=== PATIENT | male | born 1950 | race Caucasian/White ===

== ENCOUNTER 2021-11-28 13:26 | Outpatient (CLI) | payer MEDICARE, OTHER, SELFPAY ==
[2021-11-28 09:31] LABS: Chloride* 103 mmol/L (96-114)
[2021-11-28 09:32] LABS: Albumin* 4.7 g/dL (3.3-5.0); Potassium* 4.5 mmol/L (3.6-5.1); Sodium* 137 mmol/L (135-149)
[2021-11-28 09:34] LABS: Cholesterol* 177 mg/dL (90-199)
[2021-11-28 09:35] LABS: Alanine Aminotransferase* 23 U/L (4-50); Alkaline Phosphatase* 76 U/L (40-150); Aspartate Amino Transferase* 28 U/L (12-35); Bilirubin Total* 0.8 mg/dL (0.1-1.5); Blood Urea Nitrogen* 14 mg/dL (7-30); Calcium* 9.9 mg/dL (8.4-10.6); Carbon Dioxide* 27 mmol/L (20-32); Creatinine* 1.3 mg/dL (0.5-1.5); Estimated Glomerular Filt Rate 59 ml/min; Glucose* 100 mg/dL (60-115); Total Protein* 7.3 g/dL (6.0-8.3); Triglycerides* 158 mg/dL (40-149)
[2021-11-28 09:36] LABS: HDL Cholesterol* 62 mg/dL (>=40); LDL Cholesterol Calculated 83 mg/dL (<100)
[2021-11-28 10:03] LABS: PSA Screen* 5.64 ng/mL (0.10-4.00)
== END 2021-11-28 13:27 | disposition home or self-care (01) ==
PROVIDERS: PCP Family Medicine; Visit Provider Family Medicine
DX: E78.5 Hyperlipidemia, unspecified (principal); N40.0 Benign prostatic hyperplasia without lower urinary tract symptoms; R97.20 Elevated prostate specific antigen [PSA]; N28.9 Disorder of kidney and ureter, unspecified
CPT/HCPCS: 80053; 80061; 84153

== ENCOUNTER 2022-10-01 09:20 | Outpatient (CLI) | payer MEDICARE, OTHER, SELFPAY | END 2022-10-01 09:21 | disposition home or self-care (01) | LOC: AMB 10-05 09:39 | PROVIDERS: PCP Family Medicine; Visit Provider Family Medicine | DX: R25.2 Cramp and spasm (principal); R42 Dizziness and giddiness | CPT/HCPCS: A0425; A0427 ==

== ENCOUNTER 2022-10-01 09:43 | Emergency (ER) | payer MEDICARE, OTHER, SELFPAY ==
[2022-10-01] VITALS (10 sets, daily range): BP systolic 91–140; BP diastolic 48–81; PULSE 46–72; RESP 10–33; TEMP 36; O2SAT 92–98; BMI 31.4
--- NOTE | 2022-10-01 10:17 | ED_ITS ---
HPI - General Adult General Time Seen by Provider: 10:17 Date Seen: 10/01/22 Chief complaint: Dizziness/Vertigo Stated complaint: cramps / jaw pain Time Seen by Provider: 10/01/22 10:17 Source: patient Mode of arrival: EMS Limitations: no limitations History of Present Illness HPI narrative: Barrett is a very pleasant 72-year-old gentleman with a history of hyperlipidemia, renal insufficiency otherwise quite active who comes to the emergency room via EMS after having lightheadedness earlier today. Barrett rides his bike frequently and his usual route is 19 miles. He was approximately 4 miles into his route today when he had the sudden experience of jaw pain and clenching associated with low back and leg pain. He stopped biking and was trying to rest when he also became lightheaded. He does not really describe any vertigo type symptoms. He thinks that he is dehydrated and thought this prior to starting his ride today. He notes that he started drinking his water earlier than normal. Because he was not feeling any better he went to lay on the ground. Passerbys stopped to help him as he was not feeling any better. Thus they called 911. He notes that his blood pressure was quite low with the ambulance. He notes that usually his blood pressure is 140 systolic. He denies chest pain, shortness of breath, abdominal pain or nausea. He denies a headache, history of cardiac disease. He notes that the low back pain with radiation into his legs is improved. His jaw brain is much improved but still present. Again he attributes all of this to dehydration. Related Data Home Medications Medication Instructions Recorded Confirmed calcium carbonate 600 mg-vitamin 2 tab PO DAILY 12/01/21 10/01/22 D3 20 mcg (800 unit) tablet Previous Rx's Medication Instructions Recorded simvastatin 20 mg tablet 20 mg PO QHS #90 tabs 12/01/21 Allergies Allergy/AdvReac Type Severity Reaction Status Date / Time amoxicillin Allergy Severe Rash Verified 10/01/22 12:45 Sulfa (Sulfonamide Allergy Severe Swelling Verified 10/01/22 12:45 Antibiotics) of Lip/Tongue/Throat Dust mites Allergy Intermediate Congested Uncoded 10/01/22 12:45 Review of Systems Status of ROS: Reports: 10 or more systems reviewed and unremarkable except as noted in History and below Const: Denies: fever or chills ENMT: Denies: throat pain, throat swelling or difficulty swallowing Cardio: Denies: chest pain, swelling of feet/ankles, lightheadedness or shortness of breath with exertion Resp: Denies: shortness of breath or cough GI: Denies: abdominal pain, nausea, vomiting or difficulty swallowing : Denies: painful urination Musculo: Reports: back pain (Low back pain now improving) Neuro: Denies: headache Allergy/Immuno: Denies: throat swelling PFSH PFSH Medical History History of renal calculi (2009) ?Z87.442 - Personal history of urinary calculi (ICD-10) History of headache ?Z87.898 - Personal history of other specified conditions (ICD-10) History of colonic polyps (12/23/08) ?Z86.010 - Personal history of colonic polyps (ICD-10) Health care directive on file (05/15/14) ?Z78.9 - Other specified health status (ICD-10) Surgical History History of tonsillectomy ?Z90.89 - Acquired absence of other organs (ICD-10) History of knee surgery (1976) ?Z98.890 - Other specified postprocedural states (ICD-10) History of hernia repair (03/27/14) ?Z98.890 - Other specified postprocedural states (ICD-10) ?Z87.19 - Personal history of other diseases of the digestive system (ICD-10) History of colonoscopy (02/14/19) ?Z98.890 - Other specified postprocedural states (ICD-10) Social History Smoking Status: Never smoker Do you use any of these nicotine containing products: None Second hand tobacco smoke exposure: No How often do you have a drink containing alcohol: never AUDIT-C Alcohol total score: 0 Non-prescribed substance use: denies use Little interest or pleasure in doing things: not at all Feeling down, depressed, or hopeless: not at all Exam Narrative: Exam Narrative: Patient is alert and oriented. He is not in any acute distress. Neck is supple. Range of motion full. EOM is full pupils are equal round and reactive. Head is atraumatic normocephalic. GCS of 15. Heart with bradycardic rate and rhythm without murmur. Lungs are clear to auscultation. Abdomen soft nontender. No pulsating mass. Lower extremities without edema. Pedal pulses are symmetrical and intact. Neurological exam shows him to be with a GCS of 15 alert and oriented. Upper extremity motor and sensation intact. Lower extremity motor and sensation intact. No calf tenderness. Const: Vital Signs, click to edit/add: Vital Signs - 24 hr 10/01/22 09:57 10/01/22 10:00 10/01/22 10:30 Temperature 96.8 F L Pulse Rate [Pulse Oximeter] 50 L 57 L 70 Respiratory Rate 16 15 22 Blood Pressure [Ri ght Upper Arm] 99/56 L 97/57 L 91/48 L Pulse Oximetry 95 92 96 Oxygen Delivery Me thod Room Air Room Air Room Air 10/01/22 11:00 10/01/22 11:30 10/01/22 12:00 Temperature Pulse Rate [Pulse Oximeter] 51 L 46 L 49 L Respiratory Rate 12 17 10 L Blood Pressure [Ri ght Upper Arm] 95/58 L 110/63 111/59 L Pulse Oximetry 96 96 96 Oxygen Delivery Me thod Room Air Room Air Room Air 10/01/22 12:30 10/01/22 13:00 10/01/22 13:30 Temperature Pulse Rate [Pulse Oximeter] 64 64 72 Respiratory Rate 20 12 33 H Blood Pressure [Ri ght Upper Arm] 128/65 136/77 140/81 H Pulse Oximetry 97 98 98 Oxygen Delivery In thod Room Air Room Air Room Air 10/01/22 13:50 Temperature Pulse Rate [Pulse Oximeter] 58 L Respiratory Rate 12 Blood Pressure [Ri ght Upper Arm] 138/78 Pulse Oximetry 98 Oxygen Delivery In thod Room Air Documenting provider has reviewed patient's vital signs: yes Course Course Hospital Course: Patient noted to have had the a sudden onset of jaw pain low back and leg pain. He notes that yesterday he was out in the sun for extended period and feels that today when he started his bike ride he that he was dehydrated. He notes he is already feeling better since his arrival. However, given the jaw and back pain, I feel this necessitates checking other labs. This would include a D-dimer, troponin, EKG comprehensive panel, CRP and CBC. No evidence of neurological event on exam. He is describing lightheadedness not vertigo. Differential diagnosis is broad and includes dehydration, electrolyte imbalance, acute coronary event, PE, aortic dissection, urinary tract infection. Reevaluation(s) Reevaluation #1: Patient noted to have markedly elevated D-dimer. After 1 L of normal saline patient notes that his jaw low back and leg pain is resolved. However, I do think he needs to go through CT scan to rule out large PE verses aortic pathology. He is in agreement with this. He is requesting something to eat and drink. Will allow him a few ice chips at this time. Reevaluation #2: CT worrisome for aortic dissection. Will keep patient NPO. Blood pressure has improved to 120 systolic and therefore will discontinue 2 L of fluid. I have contacted [facility] but now family would like to go to [facility]. [facility] was contacted and they are on divert and with that news they are happy to go to [facility]. Patient tearful as is his . I have offered small dose of Ativan and they are accepting of that. Patient remains bradycardic. No shortness of breath. No abdominal pain. Consultations Consultation #1: At the pleasure of speaking with , tube cutter to has alerted the cardiovascular surgeons. Have push the films to [place]. Will attempt to fly patient and if that is a long wait will go by ground. Vital Signs Vital signs: Initial Vital Signs Temperature 96.8 F L 10/01/22 09:57 Temperature Source Temporal Artery Scan 10/01/22 09:57 Pulse Rate 50 L 10/01/22 09:57 Pulse Rhythm Regular 10/01/22 09:57 Respiratory Rate 16 10/01/22 09:57 Blood Pressure 99/56 L 10/01/22 09:57 Blood Pressure Mean 70 10/01/22 09:57 Blood Pressure Position Sitting 10/01/22 09:57 Pulse Oximetry 95 10/01/22 09:57 Oxygen Delivery Method Room Air 10/01/22 09:57 Vital Signs Temperature 96.8 F L 10/01/22 09:57 Pulse Rate 50 L 10/01/22 09:57 Respiratory Rate 16 10/01/22 09:57 Blood Pressure 99/56 L 10/01/22 09:57 Pulse Oximetry 95 10/01/22 09:57 Oxygen Delivery Method Room Air 10/01/22 09:57 Temperature 96.8 F L 10/01/22 09:57 Pulse Rate 58 L 10/01/22 13:50 Respiratory Rate 12 10/01/22 13:50 Blood Pressure 138/78 10/01/22 13:50 Pulse Oximetry 98 10/01/22 13:50 Oxygen Delivery Method Room Air 10/01/22 13:50 Medical Decision Making MDM Narrative Medical decision making narrative: 1. Aortic dissection-currently awaiting radiological over-read. Patient's blood pressure has improved after 1 L of normal saline. Therefore I have discontinued the 2 L as I do not want a situation with volume overload. He is oxygenating well, has a bradycardic pulse and is not experiencing any pain at this time. 2. Hypotension-improved after 1 L normal saline. 3. Disposition-currently awaiting error transport to [facility]. There has been discussion regarding availability of air transport and we have finally received word that they will be here in 30 minutes. Ground EMS could be here in 15 minutes. I feel that patient would be safer in the air at this time and I do not what him in the back of an ambulance hitting pot holes, etc. Patient will be taken to the [facility] ED. Dr. Whitehead accepting physician. 1351 hours: I received a phone call from Radiology who confirms extensive aortic dissection. [facility] depart via [facility] going directly to the ED at [facility]. Medical Records Medical records reviewed: Yes I reviewed the patient's medical records Lab Data Lab results reviewed: Yes I reviewed the patient's lab results Labs: Lab Results 10/01/22 10/01/22 Range/Units 10:20 13:35 WBC 4.89 (4.50-11.00) K/uL RBC 4.39 (4.30-5.90) m/uL Hgb 13.5 (13.5-17.5) gm/dL Hct 41.4 (37.0-53.0) % MCV 94 (80-100) fL MCH 31 (26-34) pg MCHC 33 (32-36) gm/dL RDW Coeff of Devi 13.2 (11.5-15.5) % Plt Count 165 (140-440) K/uL Neut % (Auto) 69.9 (42.0-72.0) % Lymph % (Auto) 17.0 L (20-44) % Bay % (Auto) 9.2 (0.0-11.0) % Eos % (Auto) 3.1 (0.0-7.0) % Baso % (Auto) 0.6 (0.0-3.0) % Neut # (Auto) 3.42 (1.7-7.0) K/uL Lymph # (Auto) 0.80 L (0.90-2.90) K/uL Bay # (Auto) 0.40 (0.00-0.90) K/UL Eos # (Auto) 0.15 (0.00-0.50) K/uL Baso # (Auto) 0.03 (0.00-0.30) K/uL Abs Immat Gran (auto) 0.01 (0.00-0.30) K/uL Imm/Tot Granulo (auto) 0.2 % D-Dimer Quant (PE/DVT) > 20.00 H (0.00-0.50) ug/ml Sodium 137 (135-149) mmol/L Potassium 4.2 (3.6-5.1) mmol/L Chloride 108 (96-114) mmol/L Carbon Dioxide 23 (20-32) mmol/L BUN 18 (7-30) mg/dL Creatinine 1.5 (0.5-1.5) mg/dL Estimated Creat Clear 48.11 Estimated GFR 49 ml/min Glucose 99 (60-115) mg/dL Total Bilirubin 0.8 (0.1-1.5) mg/dL AST 31 (12-35) U/L ALT 27 (4-50) U/L Alkaline Phosphatase 54 (40-150) U/L C-Reactive Protein < 0.5 L (0.5-1.0) mg/dL Total Protein 6.6 (6.0-8.3) g/dL Albumin 3.9 (3.3-5.0) g/dL Urine Color Dark yellow (Yellow) Urine Appearance Clear (Clear) Urine pH 7.5 (5.0-8.5) Ur Specific [place] 1.010 (1.000-1.030) Urine Protein 2+ A (Negative) Urine Glucose (UA) Negative (Negative) Urine Ketones Negative (Negative) Urine Blood Negative (Negative) Urine Nitrite Negative (Negative) Urine Bilirubin Negative (Negative) Urine Urobilinogen 0.2 (0.2-1.0) Ur Leukocyte Esterase Negative (Negative) Urine RBC 0-2 (0-2) Urine WBC 0-2 (0-5) Ur Squamous Epith Cells Few (None-Few) Urine Bacteria Few A (None) POC Troponin I 0.01 (0.01-0.04) ng/ml Imaging Data CT Chest/Ab/Pelvis: Attestation: I have reviewed the pertinent imaging results. My impression: Patient is very worrisome for aortic dissection. Radiologist's impression: Extensive aortic dissection ascending aorta, descending aorta thoracic aorta to the iliac. ECG Data Attestation: I personally reviewed and interpreted this ECG as follows: Interpretation: EKG by my read shows sinus rhythm at a rate of 62. Patient noted to have T-wave inversion mild in 3 AVF and V6. Does not appear acute. No ST segment changes. Critical Care Time Critical Care Time Critical Care Time: Yes Attestation: The patient required my highest level preparedness to intervene emergently and I personally spent this critical care time directly and personally managing the patient. This critical care time included: Obtaining a history; Examining the patient; Pulse oximetry; Ordering and reviewing of studies; Arranging urgent treatment with development of a management plan; Evaluation of patients response to treatment; Frequent reassessment discussions with other providers. This critical care time was performed to assess and manage the high probability of imminent life-threatening deterioration that could result in multiorgan failure. It was exclusive of separate billable procedures and treating other patients and teaching time. Total Critical Care Time in Minutes: 45 Discharge Plan Discharge Clinical Impression: Aortic dissection Qualifiers: Aortic location: thoracoabdominal aorta Qualified Code(s): I71.03 - Dissection of thoracoabdominal aorta Patient Disposition: Xfer [facility] Discharge Location: [facility] Condition: Critical Prescriptions: No Action calcium carbonate-vitamin D3 600 mg-20 mcg (800 unit) tablet 2 tab PO DAILY simvastatin 20 mg tablet 20 mg PO QHS Qty: 90 3RF Stand Alone Forms: MyHealth Info Instructions
[2022-10-01 10:42] LABS: Troponin, Point-of-Care* 0.01 ng/ml (0.01-0.04)
[2022-10-01] MEDS: 0.9 % SODIUM CHLORIDE 1000 ml 1,000 ML IV ×2 (10:46→13:36)
[2022-10-01 10:52] LABS: Basophils Absolute Auto 0.03 K/uL (0.00-0.30); Basophils Percent Auto 0.6 % (0.0-3.0); Eosinophils Absolute Auto 0.15 K/uL (0.00-0.50); Eosinophils Percent Auto 3.1 % (0.0-7.0); Hematocrit 41.4 % (37.0-53.0); Hemoglobin* 13.5 gm/dL (13.5-17.5); Immature Granulocytes Abs Auto 0.01 K/uL (0.00-0.30); Immature Granulocytes Pct Auto 0.2 %; Mean Corpuscular HGB Conc 33 gm/dL (32-36); Mean Corpuscular Hemoglobin 31 pg (26-34); Mean Corpuscular Volume 94 fL (80-100); Monocytes Percent Auto 9.2 % (0.0-11.0); Neutrophils Absolute Auto 3.42 K/uL (1.7-7.0); Neutrophils Percent Auto 69.9 % (42.0-72.0); Platelet Count* 165 K/uL (140-440); RDW Coefficient of Variation % 13.2 % (11.5-15.5); Red Blood Count 4.39 m/uL (4.30-5.90); Slide Review Reflex No; White Blood Count* 4.89 K/uL (4.50-11.00)
[2022-10-01 11:00] LABS: Albumin* 3.9 g/dL (3.3-5.0); Chloride* 108 mmol/L (96-114); Sodium* 137 mmol/L (135-149)
[2022-10-01 11:01] LABS: Potassium* 4.2 mmol/L (3.6-5.1)
[2022-10-01 11:03] LABS: Alkaline Phosphatase* 54 U/L (40-150); Aspartate Amino Transferase* 31 U/L (12-35); Bilirubin Total* 0.8 mg/dL (0.1-1.5); Carbon Dioxide* 23 mmol/L (20-32); Creatinine* 1.5 mg/dL (0.5-1.5); Est. Creatinine Clearance* 48.11; Estimated Glomerular Filt Rate 49 ml/min; Total Protein* 6.6 g/dL (6.0-8.3)
[2022-10-01 11:04] LABS: Alanine Aminotransferase* 27 U/L (4-50); Blood Urea Nitrogen* 18 mg/dL (7-30); Glucose* 99 mg/dL (60-115)
[2022-10-01 11:07] LABS: C Reactive Protein* < 0.5 mg/dL (0.5-1.0)
[2022-10-01 11:21] LABS: D Dimer Quantitative* > 20.00 ug/ml (0.00-0.50)
--- NOTE | 2022-10-01 11:24 | ED.NURSE ---
patient is c/o de luna and is feeling better rated at 2/10 scale. offered Tylenol but refused at this time. turned the lights off and has about 400cc of fluids to infuse.
--- NOTE | 2022-10-01 12:17 | CRLHL7_ITS ---
For Patients: As a result of the Century Cures Act, medical imaging exams and procedure reports are released immediately into your electronic medical record. You may view this report before your referring provider. If you have questions, please contact your health care provider. INDICATION: Jaw pain, lower back pain, leg pain. TECHNIQUE: CT chest without contrast, CTA chest, abdomen, and pelvis acquired with 95 mL Isovue 370 contrast. COMPARISON: CT abdomen/pelvis dated 09/18/2020. FINDINGS: Vessels: Suboptimal study secondary to poor timing of contrast bolus. However, there is an acute dissection of both the ascending and descending thoracic aorta as well as throughout the abdominal aorta. Dissection flap appears to originate near the sinuses of Valsalva, and extends through the aortic arch. Due to poor contrast opacification, it is difficult to determine whether the dissection flap extends into any branches of the aortic arch. There is significant luminal narrowing of the true lumen in the ascending thoracic aorta at the level of the right main pulmonary artery. The celiac artery, superior mesenteric artery, and bilateral renal arteries arise from the true lumen. Inferior mesenteric artery arises from the false lumen. The dissection flap extends through the right common iliac artery and proximal right external iliac artery. CHEST: Lungs and pleura: Bibasilar atelectasis. No focal consolidation. Heart and vessels: No cardiomegaly, no pericardial effusion. Thoracic aorta as above. Thyroid and lower neck: No suspicious thyroid nodule. Mediastinum/gareth: No lymphadenopathy. Chest wall: No axillary lymphadenopathy ABDOMEN/PELVIS: Liver: No suspicious focal hepatic lesion. Gallbladder and bile ducts: Unremarkable. Pancreas: Unremarkable. Spleen: Unremarkable. Spleen is are noted. Adrenal glands: Unremarkable. Kidneys: Scattered punctate nonobstructing calculi bilaterally. Large right renal cyst noted. No significant hydronephrosis bilaterally. Too small to characterize hypodense bilateral renal lesions. Retroperitoneum: No lymphadenopathy. Bowel and mesentery: Bowel is not obstructed. No significant ascites. No pneumoperitoneum. Bladder: Unremarkable for degree of distension. Reproductive organs: Severe prostatomegaly, correlate with serum PSA. Pelvic lymph nodes: No lymphadenopathy. Abdominal wall: No acute abdominal wall abnormality. Bones: Multilevel degenerative changes of the spine. Small nonaggressive appearing lytic lesion in the right posterior iliac bone. IMPRESSION: 1. Acute aortic dissection involving both the ascending and descending thoracic aorta as well as the aortic arch, and extending through the abdominal aorta, right common iliac artery, and proximal right external iliac artery. Dissection flap appears to originate near the sinuses of Valsalva. [place] type A. Cardiothoracic surgical consultation is recommended. 2. Due to poor contrast opacification, it is difficult to determine whether the dissection flap extends into any branches of the aortic arch. Celiac artery, superior mesenteric artery, and bilateral renal arteries arise from the true lumen. Inferior mesenteric artery arises from the false lumen. Please note that all CT scans at this facility use dose modulation, iterative reconstruction, and/or weight-based dosing when appropriate to reduce radiation dose to as low as reasonably achievable. Dictated by Esteban Winslow MD @ 10/01/2022 1:44:49 PM (Electronically Signed)
--- NOTE | 2022-10-01 13:30 | ED.NURSE ---
patient's saline lock infiltrated after coming back from CT. dcd LAC and pressure applied to the site. started saline lock in the R hand #20 and L hand #20.
[2022-10-01] MEDS: LORazepam 2 MG/ML inj 0.5 MG IVP (13:36)
[2022-10-01 13:45] LABS: Appearance Urine Clear (Clear); Bilirubin Urine Negative (Negative); Blood Urine Negative (Negative); Color Urine Dark yellow (Yellow); Glucose Urine Negative (Negative); Ketones Urine Negative (Negative); Leukocyte Esterase Urine Negative (Negative); Nitrite Urine Negative (Negative); Protein Urine 2+ (Negative); Urobilinogen Urine 0.2 (0.2-1.0); pH Urine 7.5 (5.0-8.5)
[2022-10-01 13:56] LABS: RBC Urine 0-2 (0-2); Squamous Epithelial Cell Urine Few (None-Few); WBC Urine 0-2 (0-5)
[2022-10-01 13:57] LABS: Bacteria Urine Few
--- NOTE | 2022-10-01 14:03 | ED.NURSE ---
given report to air care and transport. given directions to [facility] and taken the belongings home in bag with shoes, socks, and shirt.
--- NOTE | 2022-10-01 14:06 | ED.NURSE ---
given report to Enriqueta Hamilton at [facility]. Aware of the air transport.
[2022-10-05 18:09] LABS: Calcium* 8.7 mg/dL (8.4-10.6)
== END 2022-10-01 14:00 | disposition short-term general hospital (02) ==
PROVIDERS: Emergency Provider Family Medicine; PCP Family Medicine
DX: I71.00 Dissection of unspecified site of aorta (principal)
CPT/HCPCS: 36415; 71275; 74174; 80053; 81001; 84484; 85025; 85379; 86140; 87086; 96361; 96374; 99285; 99291; J2060; J7030; Q9967

== ENCOUNTER 2022-12-17 17:51 | Emergency (ER) | payer MEDICARE, OTHER, SELFPAY ==
[2022-12-17 17:57] VITALS: BP 126/80; PULSE 88; RESP 20; TEMP 36.9; O2SAT 100; BMI 27.2
[2022-12-17 18:53] LABS: Appearance Urine Slightly Cloudy (Clear); Bilirubin Urine Negative (Negative); Blood Urine 3+ (Negative); Color Urine Brown (Yellow); Glucose Urine Negative (Negative); Ketones Urine Negative (Negative); Leukocyte Esterase Urine Trace (Negative); Nitrite Urine Negative (Negative); Protein Urine 3+ (Negative); Specific Gravity Urine 1.025 (1.000-1.030); Urobilinogen Urine 0.2 (0.2-1.0)
[2022-12-17 19:04] LABS: Bacteria Urine Few; RBC Urine >100 (0-2)
--- NOTE | 2022-12-17 23:01 | ED_ITS ---
HPI - Male Genitourinary General Date Seen: 12/17/22 Chief complaint: Unspecified Complaint, Adult Stated complaint: color of urine unusal Time Seen by Provider: 12/17/22 18:14 Source: patient Mode of arrival: ambulatory Limitations: no limitations History of Present Illness HPI Narrative: Patient is a 72-year-old gentleman who presents here for hematuria, recently started on Eliquis, this is for an indication of a DVT, they were doing some serial CTs, as he has a history of a brain bleed in the past. He noted today that he had some blood in his urine, so comes in here today. He also has noted that his a small neck on his left hand, has been bleeding more. He has really no other complaints, he denies any blood in his stools. No vomiting, no abdominal pain no chest pain no shortness of breath or other issues. He is recovering from an aortic dissection, has had a bit of a prolonged course but doing quite well. He is in tonight with his . He does not endorse any problems with urination, he goes approximately once an hour, he does not feel full, he is being treated currently for UTI with cefepime IV through a PICC line in the right side. Related Data Home Medications Medication Instructions Recorded Confirmed calcium carbonate 600 mg-vitamin 2 tab PO DAILY 12/01/21 10/01/22 D3 20 mcg (800 unit) tablet Previous Rx's Medication Instructions Recorded simvastatin 20 mg tablet 20 mg PO QHS #90 tabs 12/01/21 Allergies Allergy/AdvReac Type Severity Reaction Status Date / Time amoxicillin Allergy Severe Rash Verified 10/01/22 12:45 Sulfa (Sulfonamide Allergy Severe Swelling Verified 10/01/22 12:45 Antibiotics) of Lip/Tongue/Throat Dust mites Allergy Intermediate Congested Uncoded 10/01/22 12:45 Review of Systems Status of ROS: Reports: 10 or more systems reviewed and unremarkable except as noted in History and below PFSH PFSH Medical History History of renal calculi (2009) ?Z87.442 - Personal history of urinary calculi (ICD-10) History of headache ?Z87.898 - Personal history of other specified conditions (ICD-10) History of colonic polyps (12/23/08) ?Z86.010 - Personal history of colonic polyps (ICD-10) Health care directive on file (05/15/14) ?Z78.9 - Other specified health status (ICD-10) Surgical History History of tonsillectomy ?Z90.89 - Acquired absence of other organs (ICD-10) History of knee surgery (1976) ?Z98.890 - Other specified postprocedural states (ICD-10) History of hernia repair (03/27/14) ?Z98.890 - Other specified postprocedural states (ICD-10) ?Z87.19 - Personal history of other diseases of the digestive system (ICD-10) History of colonoscopy (02/14/19) ?Z98.890 - Other specified postprocedural states (ICD-10) Social History Smoking Status: Never smoker Do you use any of these nicotine containing products: None Second hand tobacco smoke exposure: No How often do you have a drink containing alcohol: never How often do you have six or more drinks on one occasion: Never AUDIT-C Alcohol total score: 0 Non-prescribed substance use: denies use Little interest or pleasure in doing things: not at all Feeling down, depressed, or hopeless: not at all service: No Exam Narrative: Exam Narrative: Patient is seen in room 5 he is in no apparent distress he is pleasant and alert, pupils equal round reactive to light neck is supple chest is clear bilaterally with easy respirations heart sounds are normal abdomen is soft there is no guarding no organomegaly is no blood in his penis, I do not palpate a bladder. Bladder scan is done which shows less than 80 mL. Const: Vital Signs, click to edit/add: Vital Signs - 24 hr 12/17/22 17:57 Temperature 98.4 F Pulse Rate [Pulse Oximeter] 88 Respiratory Rate 20 Blood Pressure [Le ft Upper Arm] 126/80 Pulse Oximetry 100 Oxygen Delivery Me thod Room Air Documenting provider has reviewed patient's vital signs: yes Course Vital Signs Vital signs: Initial Vital Signs Temperature 98.4 F 12/17/22 17:57 Temperature Source Temporal Artery Scan 12/17/22 17:57 Pulse Rate 88 12/17/22 17:57 Pulse Rhythm Regular 12/17/22 17:57 Respiratory Rate 20 12/17/22 17:57 Blood Pressure 126/80 12/17/22 17:57 Blood Pressure Mean 95 12/17/22 17:57 Blood Pressure Position Sitting 12/17/22 17:57 Pulse Oximetry 100 12/17/22 17:57 Oxygen Delivery Method Room Air 12/17/22 17:57 Vital Signs Temperature 98.4 F 12/17/22 17:57 Pulse Rate 88 12/17/22 17:57 Respiratory Rate 20 12/17/22 17:57 Blood Pressure 126/80 12/17/22 17:57 Pulse Oximetry 100 12/17/22 17:57 Oxygen Delivery Method Room Air 12/17/22 17:57 Temperature 98.4 F 12/17/22 17:57 Pulse Rate 88 12/17/22 17:57 Respiratory Rate 20 12/17/22 17:57 Blood Pressure 126/80 12/17/22 17:57 Pulse Oximetry 100 12/17/22 17:57 Oxygen Delivery Method Room Air 12/17/22 17:57 MDM - Male Genitourinary MDM Narrative Medical decision making narrative: I discussed with him that he likely has some bleeding, from his bladder. He is being treated for a DVT. He is on the increased dose of Eliquis at least for the next 4 days. Of 10 mg twice daily, he does not want to stop this, but I think it would be reasonable as he does not have retention, to continue flushing himself up, recheck his hemoglobin this week, return if any signs of bleeding or becomes weak, and then back down on the Eliquis a little bit to 5 twice daily. He was really happy with this plan, he will return if any further issues. Medical Records Attestation: I reviewed the patient's medical records. Lab Data Attestation: I reviewed the patient's lab results. Labs: Lab Results 12/17/22 Range/Units 18:40 Urine Color Brown A (Yellow) Urine Appearance Slightly Cloudy A (Clear) Urine pH 6.0 (5.0-8.5) Ur Specific [place] 1.025 (1.000-1.030) Urine Protein 3+ A (Negative) Urine Glucose (UA) Negative (Negative) Urine Ketones Negative (Negative) Urine Blood 3+ A (Negative) Urine Nitrite Negative (Negative) Urine Bilirubin Negative (Negative) Urine Urobilinogen 0.2 (0.2-1.0) Ur Leukocyte Esterase Trace A (Negative) Urine RBC >100 A (0-2) Urine WBC 10-25 A (0-5) Ur Squamous Epith Cells None (None-Few) Urine Bacteria Few A (None) Discharge Plan Discharge Clinical Impression: Hematuria, Anticoagulant effect, History of UTI Patient Disposition: Home w/ Parent or Adult Condition: Stable Instructions: Hematuria (ED) Additional Instructions: Would suggest home decreasing year Eliquis to 5 mg twice daily. Follow-up with primary care this week, reading should slow down. Lots of fluids, if he finds he cannot pee you need to come back to the emergency room, or if you have become so weak and short of breath, that would mean her hemoglobin is dropping. Activity Level: Light activity Prescriptions: No Action calcium carbonate-vitamin D3 600 mg-20 mcg (800 unit) tablet 2 tab PO DAILY simvastatin 20 mg tablet 20 mg PO QHS Qty: 90 3RF Follow Up/Referrals: Los Booker MD [Primary Care Provider] - Stand Alone Forms: [place] Info Instructions
--- NOTE | 2022-12-22 09:42 | ONC.NURNOTE ---
Received phone call from PCP office yesterday asking to draw labs from PICC line. Instructed to send an order with the use of cath-aliza if needed. Order obtained this morning. [employer] called patient to schedule, he wants this drawn peripherally. Orders were sent back to PCP to draw patient per his request. Patient aware to schedule with the clinic.
== END 2022-12-17 20:25 | disposition home or self-care (01) ==
LOC: ED 20:20
PROVIDERS: Emergency Provider Family Medicine; PCP Family Medicine
DX: R31.9 Hematuria, unspecified (principal); T45.515A Adverse effect of anticoagulants, initial encounter
CPT/HCPCS: 51798; 81001; 87086; 99283

== ENCOUNTER 2022-12-25 08:30 | Outpatient (CLI) | payer MEDICARE, OTHER, SELFPAY | END 2022-12-25 08:31 | disposition home or self-care (01) | LOC: NFLDREF 12-27 12:08 | PROVIDERS: PCP Family Medicine; Referring Provider Family Medicine; Visit Provider Family Medicine | DX: E78.5 Hyperlipidemia, unspecified (principal); B96.89 Other specified bacterial agents as the cause of diseases classified elsewhere; N39.0 Urinary tract infection, site not specified; N40.0 Benign prostatic hyperplasia without lower urinary tract symptoms | CPT/HCPCS: 80048; 80053; 80061; 84153 ==

== ENCOUNTER 2023-02-23 08:49 | Outpatient (CLI) | payer MEDICARE, OTHER, SELFPAY ==
--- OUTSIDE RECORDS SUMMARY | 2023-03-01 15:52 | XMS_ITS | Clinical Summary ---
Author Name Unknown Organization [facility] Address [place], [place] [address] Care Team Providers Care Waiter/Waitress First Class Name Role Phone Los Booker MD Primary Care Provider [phone] Allergies Active Allergy Reactions Criticality Noted Date Comments Amoxicillin Rash 12/01/2020 Dust Mites Headache 12/01/2020 Levofloxacin Other - Describe In Comment Field 10/09/2022 H/o aortic dissection Sulfa (Sulfonamide Antibiotics) Angioedema 12/01/2020 Medications Medication Sig Dispensed Refills Start Date End Date Status latanoprost (XALATAN) 0.005 % ophthalmic solutionIndications :Glaucoma, unspecified glaucoma type, unspecified laterality Place 1 Drop into both eyes at bedtime. 2.5 mL 3 Active polyethylene glycol (MIRALAX; GLYCOLAX) 17 g per packet packetIndications:C ritical illness myopathy Mix 17 g in liquid then take by mouth once daily if needed for Constipation. 510 g 3 Active bisacodyL (DULCOLAX) 10 mg suppositoryIndicati ons:Critical illness myopathy Insert 1 Suppository (10 mg) rectally once daily if needed for Constipation 2nd choice. 13 Suppository 3 Active calcium with vitamin D3 (OS-RAPHAEL 500 + D) tabletIndications:S ubdural hematoma (HC) Take 1 Tablet by mouth once daily with a meal. 60 Tablet 3 Active ergocalciferol (VITAMIN D2; DRISDOL) 50,000 unit capsuleIndications: Vitamin D deficiency Take 1 Capsule (50,000 units) by mouth once weekly. 6 Capsule 0 3 Active acetaminophen (TYLENOL) 325 mg tabletIndications:S ubdural hematoma (HC) Take 2 Tablets (650 mg) by mouth every 4 hours if needed for Pain. Max acetaminophen dose: 4000mg in 24 hrs. 100 Tablet 3 Active aspirin (ECOTRIN) 81 mg enteric coated tabletIndications:T ype 1 dissection of ascending aorta (HC) Take 1 Tablet (81 mg) by mouth once daily with a meal. 120 Tablet 2 3 Active colchicine 0.6 mg tabletIndications:G out, unspecified cause, unspecified chronicity, unspecified site Take one-half tablet (0.3 mg) by mouth once daily. 15 Tablet 1 3 Active metoprolol tartrate (LOPRESSOR) 25 mg tabletIndications:P aroxysmal atrial fibrillation with rapid ventricular response (HC) Take A QUARTER OF A TABLET (6.25 mg) by mouth at bedtime. 60 Tablet 1 3 Active mirtazapine (REMERON) 15 mg tabletIndications:C ritical illness myopathy Take 1 Tablet (15 mg) by mouth at bedtime. 30 Tablet 2 3 Active rosuvastatin (CRESTOR) 10 mg tabletIndications:H yperlipidemia, unspecified hyperlipidemia type Take 1 Tablet (10 mg) by mouth once daily with evening meal. 90 Tablet 3 3 Active apixaban (ELIQUIS) 5 mg tabletIndications:d eep venous thrombosis Take 1 Tablet (5 mg) by mouth two times daily. 60 Tablet 5 3 Active amLODIPine (NORVASC) 5 mg tabletIndications:T ype 1 dissection of ascending aorta (HC) Take 1 Tablet (5 mg) by mouth once daily. 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 LACY, 10/01/22 GELWEAVE VASCULAR PROSTHESIS, [id number], REF: [id number], SN: [id number], LOT:[id number], EXP: 06/11/25, AORTA, DR. 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 UTI due to Klebsiella species Resolved Problems Problem Noted Date Diagnosed Date Resolved Date UTI (urinary tract infection) 12/11/2022 12/11/2022 Encounters Date Type Department Care Team Description 3 Orders Only [facility] [address] [place] [address] Rambo Jack MD <No scans attached> 3 Patient Outreach [facility] [address] [facility] [address] [place] [phone] Ansley Ambrocio RN Stroke Rehab Care Coordination - [facility] 3 Orders Only [facility] [address] [place] [address] Bon Ingram MD <No scans attached> 3 Telephone [facility] [address] [facility] [address] [place] [phone] Rambo Jack MD Results (Chest/abdomen/pelvis) 3 2:45 PM ED CASE MANAGER Office Visit [facility] [address] [place] [address] Rambo Jack MD CV General Cardiology Est ([facility] /DX: Type 1 dissection of ascending aorta (HC) [I71.010] /S/P ascending aortic replacement [Z95.828] //PCP: Los Booker MD/) 3 1:09 PM ED CASE MANAGER - 3 11:59 PM ED CASE MANAGER Hospital Encounter [facility] [address] [place] [address] Rambo Jack MD Type 1 dissection of ascending aorta (HC); S/P ascending aortic replacement 3 Travel 3 Telephone [facility] [address] [facility] [address] [place] [address] Rambo Jack MD Cardiovascular Diagnostic Testing 3 2:30 PM ED CASE MANAGER - 3 11:59 PM ED CASE MANAGER Hospital Encounter [facility] [address] [place] [address] Lee Moody, Colt Rodriguez, PT Critical illness myopathy; Subdural hemorrhage (HC); Impaired functional mobility, balance, gait, and endurance; Impaired mobility and ADLs 3 Travel 3 Patient Outreach [facility] [address] [facility] [address] [place] [phone] Ansley Ambrocio RN Stroke Rehab Care Coordination - [facility] 3 1:30 PM ED CASE MANAGER Office Visit [facility] [address] [facility] [address] [place] [address] Barrett Nayak MD CV Electrophysiology New (Initial CV EP visit post hospitalizations. Pt reports no sx. Dx: PAF. ) 3 Travel 3 Travel 3 Home Care Visit [facility] [address] [place] [address] Steve Stinson, BRITTNEE OT - OASIS DISCHARGE 3 1:00 PM ED CASE MANAGER Home Care Visit [facility] [address] [place] [address] Estrellita Reid, RN SN - DISCIPLINE DISCHARGE 3 1:30 PM ED CASE MANAGER Home Care Visit [facility] [address] [place] [address] Taiwo Carrillo RN SN - PRN HOME VISIT 3 1:30 PM ED CASE MANAGER Home Care Visit [facility] [address] [place] [phone] Estrellita Reid, RN SN - LONG VISIT (>90 MINUTES) 3 Orders Only [facility] [address] [place] [phone] Nick Zavala MD Lab (Home health/) 3 3:00 PM ED CASE MANAGER Home Care Visit [facility] [address] [place] [phone] Steve Stinson, OT OT - INITIAL ASSESSMENT 3 Nurse Triage [facility] [address] [place], [place] [phone] Los Booker MD Home Care 3 1:00 PM CDT Home Care Visit [facility] [address] [place] [phone] Estrellita Reid, RN SN IV - START OF CARE 3 Telephone [facility] [address] [place] [address] Estrellita Reid, respiratory care faculty 3 Plan of Care Documentation [facility] [address] [place] [phone] 3 Patient Outreach [facility] [address] [place] [phone] Ansley Ambrocio RN Stroke Rehab Care Coordination - [facility] 3 8:31 AM CDT - 3 3:10 PM CDT Hospital Encounter [facility] [address] [place] [address] Aly Esquivel, Barrett Mckeon, DO [place], [facility], MATT Residents, A2 Acute cystitis without hematuria (Primary Dx); Sepsis, due to unspecified organism, unspecified whether acute organ dysfunction present (HC); Acute deep vein thrombosis (DVT) of right lower extremity, unspecified vein (HC); Subdural hemorrhage (HC); Critical illness myopathy; Subdural hematoma (HC); Vitamin D deficiency; Pericardial effusion with cardiac tamponade; Urinary retention; Paroxysmal atrial fibrillation with rapid ventricular response (HC); Type 1 dissection of ascending aorta (HC); Gout, unspecified cause, unspecified chronicity, unspecified site; Hyperlipidemia, unspecified hyperlipidemia type; Pyelonephritis; Complicated UTI (urinary tract infection) Discharge Disposition: Home Health 3 Travel 3 Telephone [facility] [address] [phone] Svetlana Brady NP 3 Lab Requisition [facility] [phone] Ni Simpson MD 3 Lab Requisition [facility] [phone] Ni Simpson MD 3 8:30 AM CDT Correction [facility] - [address] [phone] Svetlana Brady NP Error-please disregard 3 Orders Only [address] [phone] Svetlana Brady NP <No scans attached> 3 Travel 3 Orders Only [address] [phone] Svetlana Brady NP <No scans attached> 3 Telephone [facility] [address] [phone] Navya Da Silva, [facility] Questions 3 11:00 AM CDT Office Visit [address] [phone] Lanre Valderrama III, PhD, LP Neuropsychological Assessment 3 10:00 AM CDT Correction [address] [phone] Lee Moody NP Transitional Care Visit (Follow-Up) 3 Orders Only [address] [phone] Lee Moody NP <No scans attached> 3 Orders Only [address] [phone] Lee Moody NP <No scans attached> 3 Travel 3 Travel from Last 3 Months Immunizations Name Administration Dates Next Due Influenza, Inactivated AIIV4 (Age 65+ Years) Preserv Free 11/10/2022 Family History Relation Name Status Comments Brother Alive Daughter 1 Alive Daughter 2 Alive Father Mother Son Alive Social History Tobacco Use Types Packs/Day Years Used Date Smoking Tobacco: Never Smokeless Tobacco: Never Alcohol Use Standard Drinks/Week Comments Not Currently 0 (1 standard drink = 0.6 oz pur e alcohol) Social Connections Answer Date Recorded Frequency of Communication with Friends and Fami ly 0 12/12/2022 Financial Resource Strain Answer Date R ecorded Difficulty of Paying Living Expenses 3 12/12/2022 Difficulty of Paying Living Expenses Not on file 12/12/2022 Food Insecurity Answer Date Recorded Worried About Running Out of Food in the Last Ye ar 1 12/12/2022 Transportation Needs Answer Date Record ed Lack of Transportation (Medical) 1 12/12/2022 Housing Stability Answer Date Recorded Unable to Pay for Housing in the Last Year 1 12/12/2022 Education Answer Date Recorded What is the highest level of school you have completed or the highest degree you have received? Doctorate 10/13/2022 Sex and Gender Information Value Date Recorded Sex Assigned at Male 01/08/2023 10:44 AM ED CASE MANAGER Gender Identity Male 01/08/2023 10:44 AM ED CASE MANAGER Sexual Orientation Straight 01/08/2023 10 :44 AM ED CASE MANAGER Obstetrics History Last Filed Vital Signs Vital Sign Reading Time Taken Comments Blood Pressure 153/82 01/17/2023 4:00 PM ED CASE MANAGER Pulse 71 01/17/2023 4:00 PM ED CASE MANAGER Temperature 36.5 ??C (97.7 ??F) 12/26/2022 1:44 PM CS T Respiratory Rate 16 12/25/2022 2:38 PM ED CASE MANAGER Oxygen Saturation 97% 01/17/2023 2:51 PM ED CASE MANAGER Inhaled Oxygen Concentration - - Weight 89.4 kg (197 lb) 01/17/2023 2:51 PM ED CASE MANAGER Height 180.3 cm (5' 11) 01/17/2023 2:51 PM ED CASE MANAGER Body Mass Index 27.48 01/17/2023 2:51 PM ED CASE MANAGER Plan of Treatment Upcoming Encounters Date Type Department Care Team (Late st Contact Info) Description 03/29/2023 10:00 AM ED CASE MANAGER Office Visit [facility] [address] [facility] [address] [place] [phone] Marylu Vera NP [address] [place] [address] 07/18/2023 3:30 PM CDT Office Visit [facility] [place] [address] [place] [address] Barrett Nayak MD [address] [place] [address] Health Maintenance Due Date Last Done Comments Pneumococcal series for age 65+ (1 of 2 - PCV) 1957 Tdap 1962 Depression screening for age 12+ 1963 Hepatitis C screening for ag e 18-79 1969 Tetanus booster 1971 Colonoscopy through age 75 1996 Lipids for age 45-75 1996 Zoster (shingles) series for age 50+ (1 of 2) 2001 Medicare Wellness for age 65+ 2016 BMI (ht and wt on same day) for age 18+ 01/18/2024 01/17/2023, 01/10/2023 Influenza for age 65+ Completed 11/10/2022 COVID-19 vaccine series Completed 12/09/19 23, 09/15/2022, 10/31/2021, Additional history exists Medical Devices Implanted Type Area Nuclear Technologist Device Identifier Shelf Expiration Date Model / Serial / Lot Tissue Pericardium 6x8cm Photofix Bovine - [id number] Implanted:Qty: 1 on 10/01/2022 by Leonardo Lacy MBBS at [facility] N/A: Aorta StartForce 01/27/2024 PFP 6X8 / / [id number] Description:Proximal aorta Graft Vasc [id number] Vascutek Gelweave Trifurcate Arch - [id number] Implanted:Qty: 1 on 10/01/2022 by Leonardo Lacy MBBS at [facility] N/A: Aortic Arch Numbrs AG 11/11/2024 [id number]/10X 2 / [id number] / [id number] Graft Vasc [id number] Vascutek Gelweave Stra - [id number] Implanted:Qty: 1 on 10/01/2022 by Leonardo Lacy MBBS at [facility] N/A: Aorta Numbrs AG 06/11/2025 [id number] / [id number] / [id number] Occluder Krissy 45mm Atriclip Flex V Exclusion Sys - [id number] Implanted:Qty: 1 on 10/01/2022 by Leonardo Lacy MBBS at [facility] Left: Heart At[employer]ure Inc 05/13/2025 [id number] / / [id number] Explanted Type Area Nuclear Technologist Device Identifier Shelf Expiration Date Model / Serial / Lot Graft Vasc [id number] Inez Watts - [id number] Explanted:Qty: 1 on 10/01/2022 at [facility] Grafts Right: Chest [employer] 05/13/2027 [id number] / [id number] Description:AXILLARY Procedures Procedure Name Priority Date/Time Associated Diagnosis Comments HEMOGLOBIN Routine 01/17/2023 4:25 PM ED CASE MANAGER S/P ascending aortic replacement BASIC METABOLIC PANEL Routine 01/17/2023 4:25 PM ED CASE MANAGER S/P ascending aortic replacement CTA CHEST ABDOMEN PELVIS - DUAL Routine 01/17/2023 2:17 PM ED CASE MANAGER Type 1 dissection of ascending aorta (HC) CREATININE,ISTAT Routine 01/17/2023 2:03 PM ED CASE MANAGER EKG 12 LEAD Routine 01/11/2023 Paroxysmal atrial fibrillation (HC) CREATININE Early AM 12/14/2022 7:45 AM CDT HEMOGLOBIN Early AM 12/14/2022 7:45 AM CDT SCAN-CARDIAC STRIP 12/14/2022 2: 09 AM CDT MIDLINE CATHETER Routine 12/13/2022 6:17 PM CDT INSERT MIDLINE Routine 12/13/2022 6:15 PM CDT ELECTROLYTE PANEL Early AM 12/13/2022 10: 27 AM CDT CREATININE Early AM 12/13/2022 10:27 AM CDT HEMOGLOBIN Early AM 12/13/2022 10:27 AM CDT WHITE BLOOD COUNT Early AM 12/13/2022 10: 27 AM CDT SCAN-CARDIAC STRIP 12/13/2022 2: 14 AM CDT MAGNESIUM Early AM 12/12/2022 8:45 AM CDT WHITE BLOOD COUNT Early AM 12/12/2022 8:4 5 AM CDT HEMOGLOBIN Early AM 12/12/2022 8:45 AM CDT BASIC METABOLIC PANEL Early AM 12/12/2022 8:45 AM CDT SCAN-CARDIAC STRIP 12/12/2022 2: 10 AM CDT LACTATE VENOUS Today 12/11/2022 9:40 PM CDT US VENOUS LOWER EXTREMITY RIGHT STAT 12/11/2022 6:35 PM CDT LACTATE VENOUS Timed 12/11/2022 5:53 PM CDT SCAN-CARDIAC STRIP 12/11/2022 3: 47 PM CDT LACTATE VENOUS Today 12/11/2022 3:33 PM CDT LACTATE SCREEN VENOUS ISTAT W LEE Timed 12/11/2022 12:[address] ANGIO HEAD STAT 12/11/2022 11:04 AM CDT LACTATE VENOUS Timed 12/11/2022 9:37 AM CDT CBC WITH AUTO DIFFERENTIAL STAT 12/11/2022 9:37 AM CDT EXTRA TUBE LEE ON ICE STAT 12/11/2022 9:37 AM CDT PROTIME-INR STAT 12/11/2022 9:37 AM CDT COMP METABOLIC PANEL STAT 12/11/2022 9:37 AM CDT BLOOD CULTURE STAT 12/11/2022 9:37 AM CDT CBC WITH AUTO DIFFERENTIAL STAT 12/11/2022 9:37 AM CDT ISTAT LACTATE SCREEN VENOUS STAT 12/11/2022 9:37 AM CDT BLOOD CULTURE STAT 12/11/2022 9:32 AM CDT URINALYSIS MICROSCOPIC Routine 12/11/2022 1:30 AM CDT URINE CULTURE Routine 12/11/2022 1:30 AM CDT UA W/ SEDIMENT EXAM REFLEXED PER CRITERIA Routine 12/11/2022 1:30 AM CDT from Last 3 Months Results * (ABNORMAL) HEMOGLOBIN (01/17/2023 4:25 PM ED CASE MANAGER) Only the most recent of4 resultswithin the time period is included. Pathologist [facility] HEMOGLOBIN 10.2(L) 13.5 - 17.5 g/dL 01/17/2023 4:51 PM ED CASE MANAGER [facility] MCV 92 80 - 100 fL 01/17/2023 4:51 PM ED CASE MANAGER [facility] Blood BLOOD SPECIMEN / Unknown Butterfly / Unknown 01/17/2023 4:25 PM ED CASE MANAGER 01/17/2023 4:25 PM ED CASE MANAGER Narrative [facility] - 01/17/2023 4:51 PM ED CASE MANAGER This procedure was originally ordered at [facility]. Rambo Jack MD HEMATOLOGY [facility] [address] [place] [address], * (ABNORMAL) BASIC METABOLIC PANEL (01/17/2023 4:25 PM ED CASE MANAGER) Only the most recent of2 resultswithin the time period is included. SODIUM 137 136 - 145 mmol/L 01/17/2023 6:16 PM [facility] POTASSIUM 4.2 3.5 - 5.1 mmol/L 01/17/2023 6:16 PM [facility] CHLORIDE 104 98 - 107 mmol/L 01/17/2023 6:16 PM [facility] CO2,TOTAL 20(L) 22 - 29 mmol/L 01/17/2023 6:16 PM [facility] ANION GAP 13 5 - 18 01/17/2023 6:16 PM [facility] GLUCOSE 90 70 - 99 mg/dL 01/17/2023 6:16 PM [facility] CALCIUM 9.7 8.8 - 10.2 mg/dL 01/17/2023 6:16 PM [facility] BUN 25(H) 8 - 23 mg/dL 01/17/2023 6:16 PM [facility] CREATININE 1.35(H) 0.70 - 1.20 mg/dL 01/17/2023 6:16 PM [facility] BUN/CREAT RATIO 19 10 - 20 6:16 PM [facility] eGFR 56(L) >90 mL/min/1.7 3m2 01/17/2023 6:16 PM [facility] Comment:As of 2021, eG FR is calculated by the CKD-EPI creatinine equation without race adjustment. ??eGFR can be influenced by muscle mass, exercise, and diet. ??The reported eGFR is an estimation only and is only applicable if the renal function is stable. Blood BLOOD SPECIMEN / Unknown Butterfly / Unknown 01/17/2023 4:25 PM ED CASE MANAGER 01/17/2023 4:25 PM ED CASE MANAGER Rambo Jack MD [facility] [address] [place] [address], [place] * CTA CHEST ABDOMEN PELVIS - DUAL (01/17/2023 2:17 PM ED CASE MANAGER) Anatomical Region Laterality Modality Abdomen, CHEST Computed Tomogra phy Impressions 01/18/2023 3:26 PM ED CASE MANAGER 1. Please see separate dictation for all cardiac and arterial structures. 2. Bilateral nonobstructive renal calculi. 3. High-density calcifications along the right pelvic side wall in the region of the right ureter could represent nonobstructive distal right ureteral calculi measuring up to 7 mm. 4. At least moderate severity prostate enlargement. 5. Consider urologic referral. Please note that all CT scans at this facility use dose modulation, iterative reconstruction, and/or weight-based dosing when appropriate to reduce radiation dose to as low as reasonably achievable. Dictated by Keny Ceballos MD @ 01/17/2023 10:25:22 PM Signed by: Keny Ceballos MD @01/17/2023 10:26:59 PM (Electronic Signature) Narrative 01/18/2023 3:26 PM ED CASE MANAGER Images from the original result were not included. STUDY: CHEST, ABDOMEN, AND PELVIS AORTIC CT ANGIOGRAPHY Study date: 01/17/2023 Indication: 72 year-old man with surgical repair of type A aortic dissection has been referred for evaluation of thoracic and abdominal aorta morphology. STUDY PARAMETERS: Scanner: Siemens Definition Force Contrast: 100 ml of Omnipaque 350 Scan protocol: Gated high-pitch for noncontrast phase. Gated high-pitch for arterial phase. Gated high-pitch for delayed phase. Radiation dose length product: 952 FINAL IMPRESSIONS: 1. Status post ascending aorta graft, debranching graft, and frozen elephant trunk repair of type A aortic dissection. 2. Intact repairs and patent endograft. 3. Residual aortic dissection begins distal to the thoracic aorta endograft and ends in the right external iliac artery. Both lumens are perfused. 4. Mildly enlarged aortic sinus with maximum cusp-cusp dimension of 41 mm. 5. Major abdominal arterial branches arise from the true lumen with the exception of the inferior mesenteric artery, which arises from the false lumen. 6. 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 7. Patent iliac and common femoral arteries. 8. Enlarged right common iliac artery (23 x 20 mm). 9. Please see separate radiology report for nonvascular findings. FINDINGS: Thoracic aorta: Left-sided arch. Intact ascending and debranching graft repairs. Patent endograft spanning the aortic arch and ending in the proximal descending thoracic aorta. Residual dissection with fenestrations begins just distal to the endograft. Mild atheromatous disease in the distal infrarenal aorta. Maximum true cross-sectional dimensions are - Aortic sinus: 41 mm maximum [id number]. Ascending aorta: Intact repair. Arch: 32 x 29 mm Descending thoracic aorta: 40 x 38 mm (included true and false lumens). Left atrium: Normal contrast opacification. Appendage has been excluded by AtriClip device. Aortic valve: Trileaflet Pericardium: No effusion Great arteries: Arise from patent debranching graft. ??Brachiocephalic artery: Patent. ??Visualized right subclavian artery: Patent. ??Visualized right common carotid artery: Patent. ??Visualized left common carotid artery: Patent. ??Visualized left subclavian artery: Patent. Abdominal aorta: Spanned by fenestrated dissection flap. Both lumens are perfused. Maximum diameters are 34 x 34 mm in the suprarenal aorta. Abdominal aorta branch arteries: Celiac artery: Arises from true lumen. Moderate ostial stenosis. Mid artery aneurysm with small dissection. Maximum diameters: 17 x 13 mm. Superior mesenteric artery: Arises from true lumen. Patent. Right renal artery: Arises from true lumen. Patent. Left renal artery: Arises from true lumen. Patent. Inferior mesenteric artery: Arises from false lumen. Patent. Pelvic arteries (RIGHT): Common iliac artery: Patent and spanned by dissection flap. Maximum diameters are 23 x 20 mm. Internal iliac artery: Nonobstructive atherosclerosis. External iliac artery: Patent with dissection flap ending in the proximal artery. Common femoral artery: Patent. Pelvic arteries (LEFT): Common iliac artery: Nonobstructive atherosclerosis. Internal iliac artery: Nonobstructive atherosclerosis. External iliac artery: Patent. Common femoral artery: Nonobstructive atherosclerosis. FOR PATIENT: Results are automatically released to your [employer] account once available, in compliance with federal regulations. ?? This means that you may see your results before your provider has had a chance to review them. ??Please allow 2-3 business days for your provider to comment on the results. Wai Squires MD 01/17/2023 For Patients: As a result of the 21st Century Cures Act, medical imaging exams and procedure reports are released immediately into your electronic medical record. ??You may view this report before your referring provider. ?? If you have questions, please contact your health care provider. OVER-READ ??OVER-READ ??OVER-READ OVER-READ: DETAILED RADIOLOGY EXTRACARDIAC OVER-READ OF CARDIAC CT 01/17/2023 COMPARISON: 10/01/2022. TECHNIQUE: ??Please see cardiology report for technical information. ??98 cc Omnipaque-350 intravenous contrast. ?? This exam is being performed in conjunction with the services provided by the [facility] ([facility]). CLINICAL HISTORY: Over-read of non-cardiovascular structures requested for patient with history of AAA. FINDINGS: ??Please see separate dictation for all cardiac and arterial structures. Chest: No new focal or diffuse pulmonary opacities. No pleural effusion or pneumothorax. Median sternotomy change. The thyroid and neck base appears unremarkable. No chest adenopathy. Abdomen/Pelvis: Changes from left inguinal hernia repair without recurrence. Bilateral renal cysts and bilateral nonobstructing renal calculi, similar in stone burden compared to previous. High-density calcifications along the right pelvic side wall in the region of the right ureter could represent nonobstructive distal right ureteral calculi measuring up to 7 mm. No cirrhotic liver morphology. The spleen is normal size. Adrenal glands appear unremarkable. Pancreas appears unremarkable. No gallbladder distention. No suspicious adenopathy in the abdomen or pelvis. Moderate to severe prostate enlargement. No aggressive appearing osseous lesion. Rambo Jack MD CT * (ABNORMAL) CREATININE,ISTAT (01/17/2023 2:03 PM ED CASE MANAGER) CREATININE, POCT 1.60(H) 0.57 - 1.11 mg/dL 01/17/2023 2:42 PM ED CASE MANAGER [employer] [facility] Comment:Caution: Patients ta jesica Hydroxyurea have falsely increased iStat Creatinine results. Verify creatinine results ordering a Creatinine (16542.2) eGFR 46(L) >90 mL/min/1.7 3m2 01/17/2023 2:42 PM ED CASE MANAGER [employer] [facility] Comment:As of 2021, eG FR is calculated by the CKD-EPI creatinine equation without race adjustment. eGFR can be influenced by muscle mass, exercise, and diet. The reported eGFR is an estimation only and is only applicable if the renal function is stable. Blood BLOOD SPECIMEN / Unknown 01/17/2023 2:03 PM ED CASE MANAGER 01/17/2023 2:42 PM ED CASE MANAGER Rambo Jack MD CHEMISTRY Performing Organization Address City/[facility]/ZIP Co de Phone Number [facility] [address] [place] [phone], * EKG 12 LEAD (01/11/2023) Barrett Nayak MD EKG ORD * (ABNORMAL) Creatinine AM (12/14/2022 7:45 AM CDT) Only the most recent of2 resultswithin the time period is included. eGFR 74(L) >90 mL/min/1.7 3m2 12/14/2022 8:22 AM CDT [facility] Comment:As of 2021, eG FR is calculated by the CKD-EPI creatinine equation without race adjustment. ??eGFR can be influenced by muscle mass, exercise, and diet. ??The reported eGFR is an estimation only and is only applicable if the renal function is stable. CREATININE 1.07 0.70 - 1.20 mg/dL 12/14/2022 8:22 AM CDT [facility] Blood BLOOD SPECIMEN / Unknown Venipuncture / Unknown 12/14/2022 7:45 AM CDT 12/14/2022 7:52 AM CDT Aleta Culp MD CHEMISTRY Performing Organization Address City/[facility]/ZIP Co de Phone Number [facility] [address] [place] [phone], * SCAN-CARDIAC STRIP (12/14/2022 2:09 AM CDT) Scanner OTHER * MIDLINE CATHETER (12/13/2022 6:17 PM CDT) Narrative Pretty Simpson RN - 12/13/2022 6:17 PM CDT Pretty Simpson RN ? 12/13/2022 ??6:17 PM Midline Tip Location Confirmation Note 12/13/2022 ??6:17 PM Midline tip location is axillary per PICC RN confirmed by Axillary measurement of 12 cm, ultrasound and blood return. Plan: ?? - Midline tip location has been confirmed and is okay to use as a midline catheter per hospital policy. Pretty Simpson RN .................... ??12/13/2022 ?? 6:17 PM Nick Zavala MD IV ORD * INSERT MIDLINE (12/13/2022 6:15 PM CDT) Narrative Pretty Simpson RN - 12/13/2022 6:15 PM CDT Pretty Simpson RN ? 12/13/2022 ??6:17 PM Midline Insertion Note 12/13/2022 ?? 6:15 PM Procedure education reviewed: Placement procedure, Benefits, Risks, Complications, and Questions answered, discussed with: Patient face to face. Patient face to face confirms understanding of procedure. Welt Butter Hand used: No Reason for insertion: ??IV antibiotics Medical/ Surgical/ Allergies History reviewed: ??Yes. Preprocedure Verification: ??Yes 1) Provider Order verified 2) Patient identity verified; 3) side/site/procedure confirmed; 4) relevant information/documentation available, reviewed and properly matched to the patient; 5) For PICC insertions, consent accurate and complete or verified provider has ordered emergent placement; 6) equipment and supplies available Site Marking: ??Yes Site marked if not in continuous attendance with the patient Time Out: ??Yes Time out was conducted just prior to starting procedure to verify the four required elements: 1) patient name and date of 2) confirmation that the correct side/site are marked if applicable, including visualization of the site lee 3) name of procedure including laterality if applicable, and 4) essential imaging and results are properly labeled and appropriately displayed, if applicable. Site assessment pre-insertion: ??Intact. Local anesthetic used at site: ??Yes, 1% Lidocaine. The following Central Line Insertion Checklist was used: Hand Hygiene: Yes Maximal Barrier Precautions including Sterile Gown, Hat and Mask: Yes Full Body Drape: Yes Site cleansed with: ??Chlorhexidine gluconate prep. MIDLINE/AXILLARY CATHETER 1 LUMEN Right;Upper Arm;Brachial Midline/Axillary (Active) 12/13/221808 Insertion Location: Right;Upper Arm;Brachial Vessel Diameter (cm): 0.46 Ahtzgurd-cu-Dmzk Ratio (%): ?? Visible Catheter Length (cm): 0 cm Placed/Present Prior to Encounter: ?? Type: Non-Valved Catheter (IA) Size: ?? Size: ?? Tip Location: Midline/Axillary Midline/Axillary mid-arm circumference (cm): 34.5 cm Total Length of Catheter (cm): 12 cm Insertion Attempts: 1 Placement Verification: Other (Comment);Ultrasound;Blood Return Removed Catheter Length (cm): ?? Visible Catheter Length (cm) 0 cm 12/13/221808 Arm Circumference (cm) 34.5 cm 12/13/221808 Status Lumen One Cap Changed;Capped/Locked;Blood Return 12/13/221808 Line Assessment Antimicrobial patch and dressing clean/dry/intact 12/13/221808 Site Description Dry/Flat;Covered 12/13/221808 Line Intervention New dressing applied and NO hemostatic agent/gauze 12/13/221808 Dressing change due date 12/20/2022 12/13/221808 Line Nuclear Technologist Name: Bard Line Type: Valved Power PICC Lot Number: [id number] Access Assistance:Modified Seldinger Technique (Micro-Introducer) WITHOUT ??Dermatotomy (skin mario) Post-insertion: ? Able to remove guidewire: ??Smoothly. ? Able to aspirate blood in each lumen: Yes ? Able to flush catheter without resistance in each lumen: ?? Yes Each lumen flushed with: ??20 ml(s) of 0.9% saline, and ??no Heparin. Cap applied to each lumen: ??Yes Line secured with: Stat-Lock ? Hospital dressing policy/procedure followed. Midline standing orders implemented: ??Yes X- ray pending: No, not applicable to midline insertion ? Insertion complications: None Patient tolerated the procedure: ??Yes Midline education reviewed: Given to patient ? Nick Zavala MD IV ORD * WBC AM (12/13/2022 10:27 AM CDT) Only the most recent of2 resultswithin the time period is included. WHITE BLOOD COUNT 9.8 4.5 - 11.0 thou/cu mm 12/13/2022 10:51 AM CDT [facility] NRBC 0.0 % 12/13/2022 10:51 AM CDT [facility] ABS NRBC 0.0 thou /cu mm 12/13/2022 10:51 AM CDT [facility] Blood BLOOD SPECIMEN / Unknown Venipuncture / Unknown 12/13/2022 10:27 AM CDT 12/13/2022 10:34 AM CDT Matilda Watts MD HEMATOLOGY Performing Organization Address [facility] Co de Phone Number [facility] [address] [place] [address], * (ABNORMAL) Electrolyte panel AM (12/13/2022 10:27 AM CDT) Pathologist [facility] SODIUM 138 136 - 145 mmol/L 12/13/2022 11:13 AM CDT [facility] POTASSIUM 4.2 3.5 - 5.1 mmol/L 12/13/2022 11:13 AM CDT [facility] CHLORIDE 108(H) 98 - 107 mmol/L 12/13/2022 11:13 AM CDT [facility] CO2,TOTAL 21(L) 22 - 29 mmol/L 12/13/2022 11:13 AM CDT [facility] ANION GAP 9 5 - 18 12/13/2022 11:13 AM CDT [facility] Blood BLOOD SPECIMEN / Unknown Venipuncture / Unknown 12/13/2022 10:27 AM CDT 12/13/2022 10:34 AM CDT Matilda Watts MD CHEMISTRY Performing Organization Address [facility] Co de Phone Number [facility] [address] [address], [place] * SCAN-CARDIAC STRIP (12/13/2022 2:14 AM CDT) Scanner OTHER * Magnesium AM (12/12/2022 8:45 AM CDT) MAGNESIUM 1.8 1.6 - 2.4 mg/dL 12/12/2022 9:27 AM CDT [facility] Blood BLOOD SPECIMEN / Unknown Butterfly / Unknown 12/12/2022 8:45 AM CDT 12/12/2022 8:51 AM CDT Matilda Watts MD CHEMISTRY Performing Organization Address [facility] de Phone Number [facility] [address] [address], [place] * SCAN-CARDIAC STRIP (12/12/2022 2:10 AM CDT) Scanner OTHER * LACTATE VENOUS (12/11/2022 9:40 PM CDT) Only the most recent of4 resultswithin the time period is included. LACTATE,VENOUS 1.0 0.5 - 2.0 mmol/L 12/11/2022 11:24 PM CDT [facility] Blood BLOOD SPECIMEN / Unknown Butterfly / Unknown 12/11/2022 9:40 PM CDT 12/11/2022 9:48 PM CDT Delia Freitas DO CHEMISTRY Performing Organization Address [facility] Co de Phone Number [facility] [address] [address], [place] * US Venous doppler RIGHT lower extermity (12/11/2022 6:35 PM CDT) Anatomical Region Laterality Modality LEGS, LEG R, Abdomen Ultrasound 12/11/2022 6:53 PM CDT Impressions 12/11/2022 6:53 PM CDT 1. Nonocclusive DVT in the right common femoral, femoral, popliteal, and posterior tibial veins. 2. Superficial thrombus in the right greater saphenous vein. Note: Findings discussed with and acknowledged by the patient`s nurse, Marta Norris, on 11 December 2022 at 1850 hours. Dictated by Travis Medina MD @ 12/11/2022 6:53:56 PM (Electronically Signed) Narrative 12/11/2022 6:53 PM CDT For Patients: ??As a result of the Cures Act, medical imaging exams and procedure reports are released immediately into your electronic medical record. ??You may view this report before your referring provider. ??If you have questions, please contact your health care provider. INDICATION: Swelling. FINDINGS: A right lower extremity DVT ultrasound was performed using grayscale imaging as well as color and spectral Doppler analysis. Nonocclusive thrombus in the right common femoral, femoral, popliteal, and posterior tibial veins. Thrombus in the right greater saphenous vein. Procedure Note Travis Medina MD - 12/11/2022 For Patients: As a result of the Cures Act, medical imagingexams and procedure reports are released immediately into your electronicmedical record. You may view this report before your referring provider.If you have questions, please contact your health care provider. INDICATION: Swelling. FINDINGS: A right lower extremity DVT ultrasound was performed using grayscaleimaging as well as color and spectral Doppler analysis. Nonocclusive thrombus in the right common femoral, femoral, popliteal, andposterior tibial veins. Thrombus in the right greater saphenous vein. IMPRESSION: 1. Nonocclusive DVT in the right common femoral, femoral, popliteal, andposterior tibial veins. 2. Superficial thrombus in the right greater saphenous vein. Note: Findings discussed with and acknowledged by the patient`s nurse,Marta Norris, on 11 December 2022 at 1850 hours. Dictated by Travis Medina MD @ 12/11/2022 6:53:56 PM (Electronically Signed) Matilda Watts MD [place] * SCAN-CARDIAC STRIP (12/11/2022 3:47 PM CDT) Scanner OTHER * (ABNORMAL) LACTATE SCREEN VENOUS ISTAT W LEE (12/11/2022 12:29 PM CDT) LACTATE VENOUS SCREEN ISTAT Intermedia te(A) <=2.0 12/11/2022 12:38 PM CDT [facility] LACTATE SCREEN VENOUS POCT 2.7(H) <=2.0 12/11/2022 12:38 PM CDT [facility] Blood BLOOD SPECIMEN / Unknown 12/11/2022 12:29 PM CDT 12/11/2022 12:38 PM CDT Narrative [facility] - 12/11/2022 12:38 PM CDT Lactate screen results of 2.1-3.9 mmol/L are reported as Intermediate. Lactate screen results of 4.0 mmol/L or greater are reported as Critical. Elevated whole blood lactate screening results >2.0 are automatically referred for confirmatory plasma lactate quantitation. [facility] [address] [place] [place] [address], * CT ANGIO HEAD (12/11/2022 11:04 AM CDT) Anatomical Region Laterality Modality HEAD, BRAIN Computed Tomogra phy 12/11/2022 11:1 5 AM CDT Impressions 12/11/2022 11:15 AM CDT Unremarkable head CTA. Please note that all CT scans at this facility use dose modulation, iterative reconstruction, and/or weight-based dosing when appropriate to reduce radiation dose to as low as reasonably achievable. Dictated by Douglas Vazquez MD @ 12/11/2022 11:15:48 AM (Electronically Signed) Narrative 12/11/2022 11:15 AM CDT For Patients: ??As a result of the Century Cures Act, medical imaging exams and procedure reports are released immediately into your electronic medical record. ??You may view this report before your referring provider. ??If you have questions, please contact your health care provider. INDICATION: Clearance before blood thinners, subdural hematoma. TECHNIQUE: CTA head with contrast bolus tracking, 3D angiographic rendering using maximum intensity projection (MIP) and images permanently archived. FINDINGS: There is normal opacification of the intracranial vasculature. There is no large vessel occlusion. No aneurysm is identified. Procedure Note Douglas Vazquez MD - 12/11/2022 For Patients: As a result of the Cures Act, medical imagingexams and procedure reports are released immediately into your electronicmedical record. You may view this report before your referring provider.If you have questions, please contact your health care provider. INDICATION: Clearance before blood thinners, subdural hematoma. TECHNIQUE: CTA head with contrast bolus tracking, 3D angiographic rendering usingmaximum intensity projection (MIP) and images permanently archived. FINDINGS: There is normal opacification of the intracranial vasculature. There is no large vessel occlusion. No aneurysm is identified. IMPRESSION: Unremarkable head CTA. Please note that all CT scans at this facility use dose modulation,iterative reconstruction, and/or weight-based dosing when appropriate toreduce radiation dose to as low as reasonably achievable. Dictated by Douglas Vazquez MD @ 12/11/2022 11:15:48 AM (Electronically Signed) [facility]ly [facility] CT * EXTRA TUBE LEE ON ICE (12/11/2022 9:37 AM CDT) Blood BLOOD SPECIMEN / Unknown Butterfly / Unknown 12/11/2022 9:37 AM CDT 12/11/2022 9:52 AM CDT [facility] [employer] [facility] [address] [place] [address], * (ABNORMAL) CBC WITH AUTO DIFFERENTIAL (12/11/2022 9:37 AM CDT) WHITE BLOOD COUNT 16.1(H) 4.5 - 11.0 thou/cu mm 12/11/2022 9:57 AM CDT [facility] RED BLOOD COUNT 2.81(L) 4.30 - 5.90 mil/cu mm 12/11/2022 9:57 AM CDT [facility] HEMOGLOBIN 8.0(L) 13.5 - 17.5 g/dL 12/11/2022 9:57 AM T [facility] HEMATOCRIT 25.4(L) 37.0 - 53.0 % 12/11/2022 9:57 AM T [facility] MCV 90 80 - 100 fL 12/11/2022 9:57 AM [facility] MCH 28.5 26.0 - 34.0 pg 12/11/2022 9:57 AM [facility] MCHC 31.5(L) 32.0 - 36.0 g/dL 12/11/2022 9:57 AM [facility] RDW 17.0(H) 11.5 - 15.5 % 12/11/2022 9:57 AM [facility] PLATELET COUNT 314 140 - 440 thou/cu mm 12/11/2022 9:57 AM [facility] MPV 9.3 6.5 - 11.0 fL 12/11/2022 9:57 AM [facility] NRBC 0.0 % 12/11/2022 9:57 AM [facility] ABS NRBC 0.0 thou /cu mm 12/11/2022 9:57 AM [facility] % NEUT 85.2 % 12/11/2022 9:57 AM [facility] % LYMPH 5.7 % 12/11/2022 9:57 AM [facility] % MONO 7.9 % 12/11/2022 9:57 AM [facility] % EOS 0.2 % 12/11/2022 9:57 AM [facility] % BASO 0.2 % 12/11/2022 9:57 AM [facility] % IMMATURE GRAN (METAS,MYELOS,IA OS) 0.8 % 12/11/2022 9:57 AM CDT [facility] ABSOLUTE NEUTROPHILS 13.7(H) 1.7 - 7.0 thou/cu mm 12/11/2022 9:57 AM CDT [facility] ABSOLUTE LYMPHOCYTES 0.9 0.9 - 2.9 thou/cu mm 12/11/2022 9:57 AM CDT [facility] ABSOLUTE MONOCYTES 1.3(H) <0.9 thou/cu mm 12/11/2022 9:57 AM CDT [facility] ABSOLUTE EOSINOPHILS 0.0 <0.5 thou/cu mm 12/11/2022 9:57 AM CDT [facility] ABSOLUTE BASOPHILS 0.0 <0.3 thou/cu mm 12/11/2022 9:57 AM CDT [facility] ABSOLUTE IMMATURE GRANULOCYTES(MET ,MYELOS,PROS) 0.1 <0.3 thou/cu mm 12/11/2022 9:57 AM CDT [facility] Blood BLOOD SPECIMEN / Unknown Butterfly / Unknown 12/11/2022 9:37 AM CDT 12/11/2022 9:45 AM CDT [facility] HEMATOLOGY [facility] [address] [place] [phone], * BLOOD CULTURE X2 (12/11/2022 9:37 AM CDT) Only the most recent of2 resultswithin the time period is included. CULTURE No Growth. 12/15/2022 10:13 AM CDT [facility] Blood BLOOD SPECIMEN / Unknown Butterfly / Unknown 12/11/2022 9:37 AM CDT 12/11/2022 9:52 AM CDT [facility] MICROBIOLOGY Performing Organization Address [facility] de Phone Number [facility] [address] [place] [phone], * (ABNORMAL) PROTIME-INR (12/11/2022 9:37 AM CDT) INR 1.2 <1.3 12/11/2022 10:00 AM CDT [facility] PROTIME 15.1(H) 12.2 - 14.3 sec 12/11/2022 10:00 AM CDT [facility] Blood BLOOD SPECIMEN / Unknown Butterfly / Unknown 12/11/2022 9:37 AM CDT 12/11/2022 9:45 AM CDT Narrative [facility] - 12/11/2022 10:00 AM CDT ?Therapeutic Range 2.0-3.0 for most anticoagulated patients 2.5-3.5 or 4.0 for high risk patients The INR is only used for patients on stable oral anticoagulant therapy. It makes no significant contribution to the diagnosis or treatment of patients whose Protime is prolonged for other reasons. INR results are increased when heparin levels exceed 1.0 U/mL, which corresponds to an aPTT >125 seconds if the patient is on UFH. [facility]ly LAZARO HEMATOLOGY Performing Organization Address [facility] de Phone Number [facility] [address] [address], * (ABNORMAL) COMP METABOLIC PANEL (12/11/2022 9:37 AM CDT) SODIUM 135(L) 136 - 145 mmol/L 12/11/2022 10:16 AM CDT [facility] POTASSIUM 4.3 3.5 - 5.1 mmol/L 12/11/2022 10:16 AM CDT [facility] CHLORIDE 102 98 - 107 mmol/L 12/11/2022 10:16 AM CDT [facility] CO2,TOTAL 23 22 - 29 mmol/L 12/11/2022 10:16 AM CDT [facility] ANION GAP 10 5 - 18 12/11/2022 10:16 AM [facility] GLUCOSE 112(H) 70 - 99 mg/dL 12/11/2022 10:16 AM [facility] CALCIUM 8.5(L) 8.8 - 10.2 mg/dL 12/11/2022 10:16 AM [facility] BUN 17 8 - 23 mg/dL 12/11/2022 10:16 AM [facility] CREATININE 1.36(H) 0.70 - 1.20 mg/dL 12/11/2022 10:16 AM [facility] BUN/CREAT RATIO 13 10 - 20 10:16 AM [facility] eGFR 56(L) >90 mL/min/1.7 3m2 12/11/2022 10:16 AM [facility] Comment:As of 2021, eG FR is calculated by the CKD-EPI creatinine equation without race adjustment. ??eGFR can be influenced by muscle mass, exercise, and diet. ??The reported eGFR is an estimation only and is only applicable if the renal function is stable. ALBUMIN 3.1(L) 4.0 - 4.9 g/dL 12/11/2022 10:16 AM [facility] PROTEIN,TOTAL 6.3 6.0 - 8.0 g/dL 12/11/2022 10:16 AM [facility] BILIRUBIN,TOTAL 0.5 0.0 - 1.2 mg/dL 12/11/2022 10:16 AM [facility] ALK PHOSPHATASE 137(H) 40 - 129 IU/L 12/11/2022 10:16 AM [facility] ALT (SGPT) 24 10 - 50 IU/L 12/11/2022 10:16 AM [facility] AST (SGOT) 29 10 - 50 IU/L 12/11/2022 10:16 AM CDT [facility] Blood BLOOD SPECIMEN / Unknown Butterfly / Unknown 12/11/2022 9:37 AM CDT 12/11/2022 9:45 AM CDT [facility] CHEMISTRY [facility] [address] [place] [address], * (ABNORMAL) URINALYSIS MICROSCOPIC (12/11/2022 1:30 AM CDT) RBC 6-10(A) 0-2, None Seen /HPF 12/11/2022 7:45 AM CDT [facility] WBC >100(A) 0-2, 3-5, None Seen /HPF 12/11/2022 7:45 AM CDT [facility] BACTERIA Moderate(A ) None Seen, Rare, Few Bacteria/ HPF 12/11/2022 7:45 AM CDT [facility] EPITHELIAL CELLS Few None Seen, Few Epi/HPF 12/11/2022 7:45 AM CDT [facility] HYALINE CASTS 11-25(A) 0-2, 3-5 /LPF 12/11/2022 7:45 AM CDT [facility] Urine URINE SPECIMEN / Unknown Client Collect / Unknown 12/11/2022 1:30 AM CDT 12/11/2022 7:33 AM CDT Ni Simpson MD URINE [facility] [address] [address], * (ABNORMAL) URINE CULTURE (12/11/2022 1:30 AM CDT) CULTURE RESULT(A) 12/13/2022 11:01 AM CDT [facility] CULTURE >100,000 CFU/mL Klebsiella aerogenes (formerly Enterobacter aerogenes) 12/13/2022 11:01 AM CDT [facility] [employer] [facility] Comment: May develop resistance during prolonged therapy with 3rd-generation cephalosporins as a result of derepression of AmpC beta-lactamase. ??Therefore, isolates that are initially susceptible may become resistant within 3 to 4 days after initiation of therapy. ??Testing repeat isolates may be warranted. Oral cephalosporins are also not recommended. Urine URINE SPECIMEN / Unknown Client Collect / Unknown 12/11/2022 1:30 AM CDT 12/11/2022 7:33 AM CDT Narrative Organism Antibiotic Method Susceptibility Klebsiella aerogenes (former ly Enterobacter aerogenes) TRIMETHOPRIM/SULF <=1/19: S Klebsiella aerogenes (former ly Enterobacter aerogenes) CEFAZOLIN >=64: R Klebsiella aerogenes (former ly Enterobacter aerogenes) GENTAMICIN <=1: S Klebsiella aerogenes (former ly Enterobacter aerogenes) CEFTRIAXONE <=1: S Comment:see organism -specific comment above Klebsiella aerogenes (former ly Enterobacter aerogenes) CEFTAZIDIME 32: R Comment:see organism -specific comment above Klebsiella aerogenes (former ly Enterobacter aerogenes) LEVOFLOXACIN <=0.12: S Klebsiella aerogenes (former ly Enterobacter aerogenes) CIPROFLOXACIN <=0.25: S Klebsiella aerogenes (former ly Enterobacter aerogenes) PIPERACILLIN/TAZO 8: S Klebsiella aerogenes (former ly Enterobacter aerogenes) CEFEPIME <=1: S Klebsiella aerogenes (former ly Enterobacter aerogenes) TOBRAMYCIN <=1: S Klebsiella aerogenes (former ly Enterobacter aerogenes) MEROPENEM <=0.25: S Klebsiella aerogenes (former ly Enterobacter aerogenes) NITROFURANTOIN 128: R Ni Simpson MD MICROBIOLOGY [facility] [address] [place] [address], [place] * (ABNORMAL) UA W/ SEDIMENT EXAM REFLEXED PER CRITERIA (12/11/2022 1:30 AM CDT) COLOR Yellow Yellow Color 12/11/2022 7:45 AM CDT [facility] CLARITY Turbid(A) Clear Clarity 12/11/2022 7:45 AM CDT [facility] SPECIFIC GRAVITY,URINE 1.015 1.010, 1.015, 1.020, 1.025 12/11/2022 7:45 AM CDT [facility] PH,URINE 8.0 6.0, 7.0, 8.0, 5.5, 6.5, 7.5, 8.5 12/11/2022 7:45 AM CDT [facility] UROBILINOGEN, QUALITATIVE Normal Normal EU/dl 12/11/2022 7:45 AM CDT [facility] PROTEIN, URINE 30(A) Negative mg/dL 12/11/2022 7:45 AM CDT [facility] GLUCOSE, URINE Negative Negative mg/dL 12/11/2022 7:45 AM CDT [facility] KETONES,URINE Negative Negative mg/dL 12/11/2022 7:45 AM CDT [facility] BILIRUBIN,URI NE Negative Negative 12/11/2022 7:45 AM CDT [facility] OCCULT BLOOD,URINE Small(A) Negative 12/11/2022 7:45 AM CDT [facility] NITRITE Positive(A) Negative 12/11/2022 7:45 AM CDT [facility] LEUKOCYTE ESTERASE Large(A) Negative 12/11/2022 7:45 AM CDT [facility] Urine URINE SPECIMEN / Unknown Client Collect / Unknown 12/11/2022 1:30 AM CDT 12/11/2022 7:33 AM CDT Ni Simpson MD URINE [facility] [address] [place] [address], from Last 3 Months Advance Directives Latest Code Status on File Code Status Date Activated Date Inactivated Comments Full Code 12/11/2022 2:18 PM 12/14/2022 6:00 PM Question Answer Comments Code Status Discussion: Reviewed Preferences Code Status History Code Status Date Activated Date Inactivated Comments Full Code 12/11/2022 1:29 PM 12/11/2022 2:17 PM Question Answer Comments Code Status Discussion: Unable to Assess Preferences, Provider to review later DNR 10/30/2022 3:01 PM 11/21/2022 12:37 PM Question Answer Comments Code Status Discussion: Reviewed Preferences DNR 10/28/2022 1:32 PM 10/30/2022 2:33 PM Question Answer Comments Code Status Discussion: Reviewed Preferences Full Code 10/27/2022 5:08 PM 10/28/2022 1:32 PM Question Answer Comments Code Status Discussion: Unable to Assess Preferences, Provider to review later Care Teams Waiter/Waitress First Class Relationship Specialty Start Date End Date Los Booker MD [address] [place] [phone] PCP - General Family Practice 12/01/20
== END 2023-02-23 08:50 | disposition home or self-care (01) ==
LOC: NFLDREF 03-01 15:50
PROVIDERS: PCP Family Medicine; Referring Provider Family Medicine; Visit Provider Family Medicine
DX: R31.9 Hematuria, unspecified (principal)
CPT/HCPCS: 87086; 87186

== ENCOUNTER 2023-08-20 13:57 | Outpatient (CLI) | payer MEDICARE, OTHER, SELFPAY ==
--- OUTSIDE RECORDS SUMMARY | 2023-08-20 13:59 | XMS_ITS | Clinical Summary ---
Author Organization [facility] [facility] Address [place], [place] [address] Care Team Providers Care Plaster Die Maker Name Role Phone Los Booker MD Primary Care Provider [phone] Allergies Active Allergy Reactions Criticality Noted Date [...] eyes at bedtime. 2.5 mL 3 Active calcium with vitamin D3 (OS-RAPHAEL 500 + D) tabletIndications:S ubdural hematoma (HC) Take 1 Tablet by mouth once daily with a meal. 60 Tablet 3 Active acetaminophen (TYLENOL) 325 mg tabletIndications:S [...] a meal. 120 Tablet 2 3 Active rosuvastatin (CRESTOR) 10 mg tabletIndications:H yperlipidemia, unspecified hyperlipidemia type Take 1 Tablet (10 mg) by mouth once daily with evening meal. 90 Tablet 3 3 Active alfuzosin (UROXATRAL) 10 mg Sustained-Release tablet Take 1 Tablet by mouth once daily. Active carvediloL (Coreg) 3.125 mg tabletIndications:P AF (paroxysmal atrial fibrillation) (HC) Take 1 Tablet (3.125 mg) by mouth two times daily with meals. 180 Tablet 3 4 Active amLODIPine (NORVASC) 5 mg tabletIndications:H TN (hypertension) Take 1 Tablet (5 mg) by mouth once daily. 90 Tablet 3 4 Active metoprolol tartrate (LOPRESSOR) 25 mg tabletIndications:P aroxysmal atrial fibrillation with rapid ventricular response (HC) Take A QUARTER OF A TABLET (6.25 mg) by mouth at bedtime. 60 Tablet 1 3 07/30/19 24 Discontinu ed(*Med complete/R egimen complete/L evel of care change) amLODIPine (NORVASC) 10 mg tabletIndications:H TN (hypertension) Take 1 Tablet (10 mg) by mouth once daily. 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 LACY, 10/01/22 GELWEAVE VASCULAR PROSTHESIS, [id number], REF: [id number], SN: [id number], LOT:[id number], EXP: 06/11/25, AORTA, DR. 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 UTI due to Klebsiella species Resolved Problems Problem Noted Date Diagnosed Date Resolved Date UTI (urinary tract infection) 12/11/2022 12/11/2022 Encounters Date Type Department Care Team Description 07/30/2023 10:30 AM CDT Office Visit [facility] [place] [id number] [facility] [address] [place] [address] Rambo Jack MD Follow Up (F/U to CTA 07/15, saw EP 07/17. labs prior. Zio worn 04/10-04/23. Pt states feeling good, no recent or current cardiac symptoms. Questions about appt with Juan Jose. ) 07/30/2023 9:58 AM CDT - 07/30/2023 11:59 PM CDT Hospital Encounter [address] [address] DEBORAH (acute kidney injury) (HC) 07/30/2023 Travel 07/19/2023 Telephone [facility] [address] [facility] [address] [place] [phone] Rambo Jack MD Results 07/18/2023 3:30 PM CDT Office Visit [facility] [place] [address] [place] [address] Barrett Nayak MD CV Electrophysiology Est (CV EP f/u. Pt reports no changes. Review zio. ) 07/18/2023 Travel 07/16/2023 12:52 PM CDT - 07/16/2023 11:59 PM CDT Hospital Encounter [facility] [address] [place] [address] Rambo Jack MD S/P ascending aortic replacement 07/16/2023 Travel 06/12/2023 Telephone [facility] [address] [place] [address] Bon Ingram MD Appointment 05/22/2023 Telephone [facility] [address] [place] [phone] Marylu Vera NP Medication Management from Last 3 Months Immunizations Name Administration [...] Sex Assigned at Male 01/08/2023 10:44 AM VETERINARY NURSE Gender Identity Male 01/08/2023 10:44 AM VETERINARY NURSE Sexual Orientation Straight 01/08/2023 10 :44 AM VETERINARY NURSE Obstetrics History Last Filed Vital Signs Vital Sign Reading Time Taken Comments Blood Pressure 116/70 07/30/2023 10:15 AM CDT Pulse 65 07/30/2023 10:15 AM CDT Temperature 36.5 ??C (97.7 ??F) 12/26/2022 1:44 PM CS T Respiratory Rate 16 12/25/2022 2:38 PM VETERINARY NURSE Oxygen Saturation 100% 07/30/2023 10:15 AM CDT Inhaled Oxygen Concentration - - Weight 96.8 kg (213 lb 8 oz) 07/30/2023 10:15 AM CDT Height 180.3 cm (5' 11) 07/30/2023 10:15 AM CDT Body Mass Index 29.78 07/30/2023 10:15 AM CDT Plan of Treatment Upcoming Encounters Date Type Department Care Team (Late st Contact Info) Description 08/29/2023 1:00 PM CDT Ancillary Procedure [facility] [address] [place] [address] Health Maintenance Due Date Last Done Comments Pneumococcal series for age 65+ (1 of 2 - PCV) 1957 Tdap 1962 Depression screening for age 12+ 1963 Hepatitis C screening for ag e 18-79 1969 Tetanus booster 1971 Colonoscopy through age 75 1996 Lipids for age 45-75 1996 Zoster (shingles) series for age 50+ (1 of 2) 2001 Medicare Wellness for age 65+ 2016 Influenza for age 65+ 10/14/2023 11/10/2022 BMI (ht and wt on same day) for age 18+ 07/29/2024 07/30/2023, 07/18/2023, 04/11/2023, Additional history exists COVID-19 vaccine series Completed 05/22/19 24, 12/08/2022, 09/15/2022, Additional history exists Medical Devices Implanted Type Area Rigging And Controls Aircraft Mechanic Device Identifier Shelf Expiration Date Model / Serial / Lot Tissue Pericardium 6x8cm Photofix Bovine - [id number] Implanted:Qty: 1 on 10/01/2022 by Leonardo Lacy MBBS at [facility] N/A: Aorta [employer] 01/27/2024 PFP 6X8 / / [id number] Description:Proximal aorta Graft Vasc 14/[id number] Vascutek Gelweave Trifurcate Arch - [id number] Implanted:Qty: 1 on 10/01/2022 by Leonardo Lacy MBBS at [facility] N/A: Aortic Arch [employer] 11/11/2024 [id number]/10X 2 / [id number] / [id number] Graft Vasc [id number] Vascutek Gelweave Stra - [id number] Implanted:Qty: 1 on 10/01/2022 by Leonardo Lacy MBBS at [facility] N/A: Aorta [employer] 06/11/2025 [id number] / [id number] / [id number] Occluder Krissy 45mm Atriclip Flex V Exclusion Sys - [id number] Implanted:Qty: 1 on 10/01/2022 by Leonardo Lacy MBBS at [facility] Left: Heart [employer] Inc 05/13/2025 [id number] / / [id number] Explanted Type Area Rigging And Controls Aircraft Mechanic Device Identifier Shelf Expiration Date Model / Serial / Lot Graft Vasc [id number] Hemashield Gold [facility] - [id number] Explanted:Qty: 1 on 10/01/2022 at [facility] Grafts Right: Chest [employer] 05/13/2027 [id number] / [id number] Description:AXILLARY Procedures Procedure Name Priority Date/Time Associated Diagnosis Comments BASIC METABOLIC PANEL Today 07/30/2023 10:05 AM CDT DEBORAH (acute kidney injury) (HC) EKG 12 LEAD Routine 07/18/2023 PAF (paroxysmal atrial fibrillation) (HC) CTA CHEST ABDOMEN PELVIS - DUAL Routine 07/16/2023 1:53 PM CDT S/P ascending aortic replacement CREATININE,ISTAT Routine 07/16/2023 1:06 PM CDT EXTENDED HOLTER Routine 06/27/2023 Paroxysmal atrial fibrillation (HC) from Last 3 Months Results * (ABNORMAL) BASIC METABOLIC PANEL (07/30/2023 10:05 AM CDT) SODIUM 140 136 - 145 mmol/L 07/30/2023 10:31 AM CDT [facility] POTASSIUM 4.5 3.5 - 5.1 mmol/L 07/30/2023 10:31 AM CDT [facility] CHLORIDE 106 98 - 107 mmol/L 07/30/2023 10:31 AM CDT [facility] CO2,TOTAL 23 22 - 29 mmol/L 07/30/2023 10:31 AM CDT [facility] ANION GAP 11 5 - 18 07/30/2023 10:31 AM CDT [facility] GLUCOSE 84 70 - 99 mg/dL 07/30/2023 10:31 AM CDT [facility] CALCIUM 9.5 8.8 - 10.2 mg/dL 07/30/2023 10:31 AM CDT [facility] BUN 25(H) 8 - 23 mg/dL 07/30/2023 10:31 AM T [facility] CREATININE 1.58(H) 0.70 - 1.20 mg/dL 07/30/2023 10:31 AM T [facility] BUN/CREAT RATIO 16 10 - 20 4 10:31 AM T [facility] eGFR 46(L) >90 mL/min/1.7 3m2 07/30/2023 10:31 AM T [facility] Comment:As of 2021, eG FR is calculated by the CKD-EPI creatinine equation without race adjustment. ??eGFR can be influenced by muscle mass, exercise, and diet. ??The reported eGFR is an estimation only and is only applicable if the renal function is stable. Blood BLOOD SPECIMEN / Unknown Venipuncture / Unknown 07/30/2023 10:05 AM CDT 07/30/2023 10:05 AM CDT Rambo Jack MD CHEMISTRY [facility] [address] [place] [address] * EKG 12 LEAD (07/18/2023) Barrett Nayak MD EKG ORD * CTA CHEST ABDOMEN PELVIS - DUAL (07/16/2023 1:53 PM CDT) Anatomical Region Laterality Modality Abdomen, CHEST Computed Tomogra phy Impressions 07/18/2023 8:35 AM CDT 1. Please see separate dictation for all cardiac and arterial structures. 2. Essentially stable non cardiovascular exam. Distal right ureteral calculi are no longer seen but nonobstructive renal calculi are seen bilaterally. Severe prostate enlargement. Please note that all CT scans at this facility use dose modulation, iterative reconstruction, and/or weight-based dosing when appropriate to reduce radiation dose to as low as reasonably achievable. Dictated by Keny Ceballos MD @ 07/17/2023 5:05:38 PM Narrative 07/18/2023 8:35 AM CDT STUDY: CHEST, ABDOMEN, AND PELVIS AORTIC CT ANGIOGRAPHY Study date: 07/16/2023 Indication: 73 year-old male with type A dissection s/p TEVAR has been referred for evaluation of thoracic and abdominal aorta morphology. STUDY PARAMETERS: Scanner: Siemens Definition Force Contrast: 100 ml of Omnipaque 350 Radiation dose length product: 1018 FINDINGS: Aortic valve: Trileaflet. Thoracic aorta: Left-sided arch. Intact ascending and debranching graft repairs. Patent endograft spanning the aortic arch and ending in the proximal descending thoracic aorta. Residual dissection with fenestrations begins just distal to the endograft. Mild atheromatous disease in the distal infrarenal aorta. Maximum true cross-sectional dimensions are - Aortic sinus: 40 x 39 x 38 mm from cusps to opposing cusp and cross-sectional area/height ratio of 6.2 cm2/m. Ascending aorta: intact repair. Arch: 31 x 28 mm Descending thoracic aorta: 38 x 35 mm. Left atrium: Normal contrast opacification. Appendage has been excluded by AtriClip device. Pericardium: No effusion. Coronary arteries: Incidentally noted extensive coronary atherosclerosis (study not designed for complete coronary evaluation). Great arteries: Arise from patent debranching graft ??Brachiocephalic artery Patent. ??Visualized right subclavian artery Patent. ??Visualized right common carotid artery Patent. ??Visualized left common carotid artery Patent. ??Visualized left subclavian artery Patent. Abdominal aorta: Spanned by fenestrated dissection flap. Both lumens are perfused. Maximum diameters are 35 x 34 mm in the suprarenal aorta. Abdominal aorta branch arteries: Celiac artery: Arises from true lumen. Moderate ostial stenosis. Mid artery aneurysm with small dissection. Maximum diameters: 17 x 13 mm. Patent. Superior mesenteric artery: Arises from true lumen. ??Patent. Right renal artery: Arises from true lumen. ??Patent. Left renal artery: Arises from true lumen. ??Patent. Inferior mesenteric artery: Arises from false lumen. ??Patent. Pelvic arteries (right): Common iliac artery: Patent and spanned by dissection flap. Maximum diameters are 22 x 20 mm. Internal iliac artery Nonobstructive atherosclerosis. External iliac artery: Patent with dissection flap ending in the proximal artery. Common femoral artery Nonobstructive atherosclerosis. Pelvic arteries (left): Common iliac artery Nonobstructive atherosclerosis. Internal iliac artery Nonobstructive atherosclerosis. External iliac artery Normal. Common femoral artery Nonobstructive atherosclerosis. Nonvascular findings: Please see separate radiology report Final Impressions: Status post ascending aorta graft, debranching graft, and frozen elephant trunk repair of type A aortic dissection. Intact repairs and patent endograft. Great arteries arise from patent debranching graft and are patent. Residual aortic dissection with fenestrations begins just distal to the endograft and ends in the right external iliac artery. Both lumens are perfused. Major abdominal arterial branches arise from the true lumen with the exception of the inferior mesenteric artery, which arises from the false lumen. Enlarged aortic sinus with maximum epvy-gz-tqnu dimension of 40 x 39 x 38 mm and maximum cross-sectional area to height ratio of 6.2 cm2/m. 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 Compared to previous scan on 01/17/2023, there has been no significant change. FOR PATIENT: Results are automatically released to your [employer] account once available, in compliance with federal regulations. ?? This means that you may see your results before your provider has had a chance to review them. ??Please allow 2-3 business days for your provider to comment on the results. Fellow: Alexandrea Andino??o Nick. MD Shahram, FACC, FSCCT, FSCMR [place] [id number] [address], [address] For Patients: As a result of the Cures Act, medical imaging exams and procedure reports are released immediately into your electronic medical record. ??You may view this report before your referring provider. ?? If you have questions, please contact your health care provider. OVER-READ ? OVER-READ ?OVER-READ OVER-READ: DETAILED RADIOLOGY EXTRACARDIAC OVER-READ OF CARDIAC CT 07/16/2023 INDICATION: Over-read of non-cardiovascular structures COMPARISON: 01/18/2020. TECHNIQUE: CTA of the chest, abdomen and pelvis was performed per [facility] protocol. Please see Cardiology dictation for details on technique. 100 cc Omnipaque 350. This exam is being performed in conjunction with the services provided by the [facility] ([facility]). FINDINGS: Please see separate dictation for all cardiac and arterial structures. Chest: Thyroid: Unremarkable Airways: The central airways are patent. No bronchiectasis Lungs: No suspicious pulmonary opacities. Pulmonary artery: No central pulmonary artery embolism. Pleural spaces: No pneumothorax or pleural effusion. Lymph Nodes: No significant axillary, mediastinal, or hilar lymphadenopathy. Abdomen/Pelvis: Liver: Non-cirrhotic morphology. No obvious suspicious lesion. Gallbladder: Unremarkable. Spleen: Normal in size. Adrenal glands: Unremarkable. Kidneys: Nonobstructive renal calculi bilaterally. Multiple cysts and parapelvic cysts. Distal right ureteral calculi are no longer seen. Pancreas: No obvious arterial phase lesion. Lymph nodes: No retroperitoneal, mesenteric, inguinal, or pelvic adenopathy by CT criteria. Bowel: No bowel obstruction. Urinary bladder: Incompletely distended. Reproductive structures: Severe prostate enlargement. Peritoneum: No abdominal/pelvis ascites or free intraperitoneal air. Other: Mesh repair in the left inguinal region MSK: No aggressive appearing osseous lesion. Median sternotomy change. Nonunion at multiple levels. Rambo Jack MD CT * (ABNORMAL) CREATININE,ISTAT (07/16/2023 1:06 PM CDT) CREATININE, POCT 1.70(H) 0.57 - 1.11 mg/dL 07/16/2023 2:35 PM CDT [facility] Comment:Caution: Patients ta jesica Hydroxyurea have falsely increased iStat Creatinine results. Verify creatinine results ordering a Creatinine (13014.2) eGFR 42(L) >90 mL/min/1.7 3m2 07/16/2023 2:35 PM CDT [facility] Comment:As of 2021, eG FR is calculated by the CKD-EPI creatinine equation without race adjustment. eGFR can be influenced by muscle mass, exercise, and diet. The reported eGFR is an estimation only and is only applicable if the renal function is stable. Blood BLOOD SPECIMEN / Unknown 07/16/2023 1:06 PM CDT 07/16/2023 2:35 PM CDT Rambo Jack MD CHEMISTRY [facility] [address] [place] [address], * ZIO PATCH XT - weekly to monthly symptoms. (06/27/2023) Barrett Nayak MD CARDIAC SERVICES OR D from Last 3 Months Advance Directives * Full Code (Latest Code Status on File) Date Activated Date Inactivated Comments 12/11/2022 2:18 PM 12/14/2022 6:00 PM Question Answer Comments Code Status Discussion: Reviewed Preferences * Full Code Date Activated Date Inactivated Comments 12/11/2022 1:29 PM 12/11/2022 2:17 PM Question Answer Comments Code Status Discussion: Unable to Assess Preferences, Provider to review later * DNR Date Activated Date Inactivated Comments 10/30/2022 3:01 PM 11/21/2022 12:37 PM Question Answer Comments Code Status Discussion: Reviewed Preferences * DNR Date Activated Date Inactivated Comments 10/28/2022 1:32 PM 10/30/2022 2:33 PM Question Answer Comments Code Status Discussion: Reviewed Preferences * Full Code Date Activated Date Inactivated Comments 10/27/2022 5:08 PM 10/28/2022 1:32 PM Question Answer Comments Code Status Discussion: Unable to Assess Preferences, Provider to review later Care Teams Plaster Die Maker Relationship Specialty Start Date End Date Los Booker MD [address] [facility] [id number] PCP - General Family Practice 12/01/20
== END 2023-08-20 13:58 | disposition home or self-care (01) ==
PROVIDERS: PCP Family Medicine; Visit Provider Family Medicine
DX: N28.9 Disorder of kidney and ureter, unspecified (principal)
CPT/HCPCS: 80048

== ENCOUNTER 2023-08-21 10:30 | Outpatient (RCR) | payer MEDICARE, OTHER, SELFPAY ==
--- NOTE | 2023-07-10 13:00 | PT.OPEX ---
[facility] PT [facility] Outpatient Eval Start: 07/10/23 08:39 Freq: Status: Active Protocol: Document 07/10/23 08:59 [facility] (Rec: 07/10/23 09:46 [facility] [id number]) E-signed By Denzel Shrestha, PT Physical Therapy Outpatient Evaluation Insurance Information Recert Due Date 10/02/23 Insurance Name Medicare B Medical Diagnosis Impaired balance/gait Treating Diagnosis Difficulty ambulating R26.2 Gait abnormality R26.9 Impaired motor function OA left knee Referring MD Dr. Los Booker Subjective Subjective Pt. had emergency open heart surgery in September for an ascending aortic aneurysm, 2022. He states he had some brain bleeds during surgery. Came out of surgery unable to walk initially and with right foot drop. He was in hospital and then rehab for 2 1/2 months. He returned home December,. At that time, he was able to walk fairly well with the walker. He has not had PT since end of November. PLOF is very active - biking 18 miles 2-3x/week and walking regularly. This past winter, he has been exercising at home but feels like he has reached a plateau. He does not feel like he is walking as well as he did prior to the emergency surgery for aortic aneurysm. Pt has concerns about balance and decreased fluidity of gait pattern. He does have left knee arthritis that causes left knee stiffness. He will sometimes use walking poles for longer walks outside or on uneven surfaces. Current ex routine: 30-60 min each day ambulation, stationary bike 3-4 x/week for 20 minutes (out of saddle for 3 min), HEP of UE weights and supine LE strengthening ex. plank x 1 min, heel raises, standing hip ABD. balance ex: tandem, SLS Pain Comments 0 Date of Last Physician Visit 06/11/23 Current Work Status Retired Occupation retired Machine [employer] Preferred Name [facility] Therapy Limitations/Systems Review Other Medical Problem Objective Other/Pertinent Objective SLS: at least 10 seconds, both sides Gait: asymmetric gait, wide SOLE, left knee genu valgus w/ mild hyperextension at end of L stance phase rigid gait, lacks knee flexion thalia, lacks full right ankle DF so swings R leg through in one movement w/ right hip hike , lacks right heel strike Functional strength: SL heel raises: more challenging on R, with leg tremor and ankle weakness LE ROM: WNL except R hip IR limited to ~25 deg LE strength: left LE: 5/5 right LE: 5/5 except ankle DF and eversion 4-/5 Coordination: intact for knee/ torrez/ankle test, thalia Neuro: impaired sensation to light touch left thigh/knee. Reports intermittent, patchy N /T in both legs since AA surgery Functional Test Performed & Score THOMSON/56 5XSTS: 11.5 seconds Assessment Assessment/Impression 73 year old male, previously very active prior to emergency surgery for ascending aortic aneurysm last September 2022. He was quite impaired functionally coming out of surgery and was hospitalized/ in rehab for 2 1/2 months. Underlying impairments included advanced left knee OA (bone on bone). Barrett presents with impaired functional motor control in both LEs but for different reasons; his left leg appears to be primarily limited by advanced OA and his right LE demo motor control impairments . He has impaired right ankle strength for which he compensates during gait with his right hip. The result is an asymmetric, rigid and wide based gait pattern. As for balance, he scored 54/56 on the THOMSON making his a low fall risk. I recommend skilled PT to improve his fluidity of gait and right LE motor control with functional mobility. Primary Functional Limitations ambulation, stairs Plan of Care Rehabilitation Potential Excellent Rehabilitation Potential Comments self-motivated, previously very active Physical Therapy Goals In 4-8 weeks, patient will: 1) Demo I with an advanced HEP to facilitate LE strength and closed chain motor control 2) Demo improved fluidity of gait pattern w/ improved R LE swing through and heel/toe gait pattern 3) Ambulate up/down flight of stairs reciprocally w/ one railing, confidently 4) Resume biking for exercise 5) Able to ambulate at a gait speed of 1.0 m/sec for at least 10 m Coordination/Communication With Referral Source Treatment Plan/Direct Interventions Gait Training,Neuromuscular Re -ed,Self-Care/Home Management, Therapeutic Activities, Therapeutic Exercises Direct Interventions Clarification improve R LE motor control Comments Frequency/Duration 1x/week for 4-8 weeks Patient Will Be Discharged From Therapy Completion of LTG(s), Independent w/HEP, Independently Progressing Evaluation Billing Untimed Code Treatment Minutes 30 Complexity Moderate Certification Information Initial Certification Date 07/10/23 Ending Certification Date 10/02/23 Provider Signature Shows Agreement With POC & Medical Necessity Physician Signature & Date Requested Please Sign/Date Here Physician Comment/Change : Physician NPI Number #
== END 2023-08-21 12:51 | disposition home or self-care (01) ==
PROVIDERS: PCP Family Medicine; Visit Provider Family Medicine
DX: R26.89 Other abnormalities of gait and mobility (principal); Z51.89 Encounter for other specified aftercare
CPT/HCPCS: 97110; 97112; 97116; 97162; 97535

== ENCOUNTER 2023-10-17 09:23 | Outpatient (CLI) | payer MEDICARE, OTHER, SELFPAY ==
--- OUTSIDE RECORDS SUMMARY | 2023-10-17 09:26 | XMS_ITS | Clinical Summary ---
Author Organization [facility] Address [address] [place] [address] Care Team Providers Care Seat Cover Maker Name Role Phone Unavailable Primary Care Provider Unavailabl e Source Comments Patient records contain information from all sites at [facility]. For routine questions regarding patient records, call [phone] during business hours, M-F 8:00 AM - 5:00 PM Central Time. Record requests for emergency care only can be directed to [phone] at any time.[facility] Active Problems Problem Noted Date Diagnosed Date Chronic Kidney Disease (CKD) , Stage 3a Glomerular Filtration Rate (GFR) 45 To 59 10/01/2023 Hypertension Essential Primary 10/01/2023 Nephrolithiasis 10/01/2023 Encounters Date Type Department Care Team Description 09/27/2023 1:00 PM CDT External Outreach Division of Nephrology and Hypertension in [place], [place] [address] [place] [address] Nubia Norman M.D., Ph.D. Chronic Kidney Disease (CKD), Stage 3a Glomerular Filtration Rate (GFR) 45 To 59 (HCC) (Primary Dx); Hypertension Essential Primary; Nephrolithiasis from Last 3 Months Social History Tobacco Use Types Packs/Day Years Used Date Smoking Tobacco: Never Assessed Dental Answer Date Recorded Dental: Regular Dentist Unknown 08/24/19 Sex and Gender Information Value Date Recorded Sex Assigned at Not on file Gender Identity Not on file Sexual Orientation Not on file Plan of Treatment Health Maintenance Due Date Last Done Comments CT Colonography 1950 Cologuard 1950 FIT 1950 Hepatitis C Screening 1950 Office Visit for Blood Press ure Check / Re-check 1950 Depression Screening (Annual PHQ-2) 02/12/2023 Fall Risk Screen (Annual) 02/12/2023 Influenza Vaccine (#1) 2023 3, 10/31/2021, 11/08/2020, Additional history exists DTaP,Tdap,and Td Vaccines (3 - Td or Tdap) 05/26/2025 05/27/2015, 2005 Fasting Glucose for Diabetes Screening 07/29/2026 07/30/2023, 01/17/2023, 12/12/2022, Additional history exists Colonoscopy 02/11/2029 02/11/2019 Colorectal Cancer Screening 02/11/2029 Pneumococcal vaccine (65+ years) Completed 06/18/2017, 02/12/2017, 06/12/2016, Additional history exists Zoster Vaccines Completed 10/23/2019, 07/14, 04/08/2013 COVID-19 Vaccine Completed 05/22/2023, , 09/15/2022, Additional history exists
--- OUTSIDE RECORDS SUMMARY | 2023-10-17 09:27 | XMS_ITS | Clinical Summary ---
Author Organization [employer] [facility] Address [place], [place] [address] Care Team Providers Care Air Brake Operator Name Role Phone Los Booker MD Primary Care Provider [phone] Allergies Active Allergy Reactions Criticality Noted Date Comments Amoxicillin Rash 12/01/2020 Dust Mites Headache 12/01/2020 Levofloxacin Other - Describe In Comment Field 10/09/2022 H/o aortic dissection Sulfa (Sulfonamide Antibiotics) Angioedema 12/01/2020 Medications Medication Sig Dispensed Refills Start Date End Date Status latanoprost (XALATAN) 0.005 % ophthalmic solutionIndications: Glaucoma, unspecified glaucoma type, unspecified laterality Place 1 Drop into both eyes at bedtime. 2.5 mL 11/24/2022 Active calcium with vitamin D3 (OS-RAPHAEL 500 + D) tabletIndications:Elam bdural hematoma (HC) Take 1 Tablet by mouth once daily with a meal. 60 Tablet 12/13/2022 Active acetaminophen (TYLENOL) 325 mg tabletIndications:Elam bdural hematoma (HC) Take 2 Tablets (650 mg) by mouth every 4 hours if needed for Pain. Max acetaminophen dose: 4000mg in 24 hrs. 100 Tablet 12/13/2022 Active aspirin (ECOTRIN) 81 mg enteric coated tabletIndications:Ty pe 1 dissection of ascending aorta (HC) Take 1 Tablet (81 mg) by mouth once daily with a meal. 120 Tablet 2 12/13/2022 Active rosuvastatin (CRESTOR) 10 mg tabletIndications:Hy perlipidemia, unspecified hyperlipidemia type Take 1 Tablet (10 mg) by mouth once daily with evening meal. 90 Tablet 3 12/13/2022 Active alfuzosin (UROXATRAL) 10 mg Sustained-Release tablet Take 1 Tablet by mouth once daily. Active amLODIPine (NORVASC) 5 mg tabletIndications:HT N (hypertension) Take 1 Tablet (5 mg) by mouth once daily. 90 Tablet 3 07/30/2023 Active carvediloL (Coreg) 3.125 mg tabletIndications:PA F (paroxysmal atrial fibrillation) (HC) Take 1 Tablet (3.125 mg) by mouth two times daily with meals. 180 Tablet 3 08/20/2023 Active Active Problems Problem Noted Date Diagnosed [...] Overview: VASCUTEK VASCULAR PRSTHESIS, TRIFURCATE ARCH GRAFT, REF:[id number], LOT: [id number], SN: [id number], EXP: 11/11/24, AORTIC ARCH/GREAT VESSELS, DR. LACY, 10/01/22 GELWEAVE VASCULAR PROSTHESIS, [id number], REF: [id number], SN: [id number], LOT:[id number], EXP: 06/11/25, AORTA, DR. 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 UTI due to Klebsiella species Resolved Problems Problem Noted Date Diagnosed Date Resolved Date UTI (urinary tract infection) 12/11/2022 12/11/2022 Encounters Date Type Department Care Team Description 09/17/2023 Orders Only [facility] [place] [address] [place] [address] Bon Ingram MD <No scans attached> 08/29/2023 1:00 PM CDT Ancillary Procedure [facility] at [facility] [address] [place] [address] 08/29/2023 Travel 08/20/2023 Telephone [facility] [address] [phone] Rambo Jack MD Medication Management 07/30/2023 10:30 AM CDT Office Visit [facility] [address] [facility] [address] [place] [phone] Rambo Jack MD Follow Up (F/U to CTA 07/15, saw EP 07/17. labs prior. Zio worn 04/10-04/23. Pt states feeling good, no recent or current cardiac symptoms. Questions about appt with Juan Jose. ) 07/30/2023 9:58 AM CDT - 07/30/2023 11:59 PM CDT Hospital Encounter [facility] [address] [place] [address] DEBORAH (acute kidney injury) (HC) 07/30/2023 Travel 07/19/2023 Telephone [facility] [address] [facility] [address] [place] [phone] Rambo Jack MD Results 07/18/2023 3:30 PM CDT Office Visit [facility] [address] [place] [address] Jose L Nayak MD CV Electrophysiology Est (CV EP f/u. Pt reports no changes. Review zio. ) 07/18/2023 Travel from Last 3 Months Immunizations Name [...] Sex Assigned at Male 01/08/2023 10:44 AM GROCERY STOCK CLERK Gender Identity Male 01/08/2023 10:44 AM GROCERY STOCK CLERK Sexual Orientation Straight 01/08/2023 10 :44 AM GROCERY STOCK CLERK Obstetrics History Last Filed Vital Signs Vital Sign Reading Time Taken Comments Blood Pressure 116/70 07/30/2023 10:15 AM CDT Pulse 65 07/30/2023 10:15 AM CDT Temperature 36.5 ??C (97.7 ??F) 12/26/2022 1:44 PM CS T Respiratory Rate 16 12/25/2022 2:38 PM GROCERY STOCK CLERK Oxygen Saturation 100% 07/30/2023 10:15 AM CDT Inhaled Oxygen Concentration - - Weight 96.8 kg (213 lb 8 oz) 07/30/2023 10:15 AM CDT Height 180.3 cm (5' 11) 07/30/2023 10:15 AM CDT Body Mass Index 29.78 07/30/2023 10:15 AM CDT Plan of Treatment Health Maintenance Due Date [...] history exists Medical Devices Implanted Type Area Efficiency Miner Blasting Device Identifier Shelf Expiration Date Model / Serial / Lot Tissue Pericardium 6x8cm Photofix Bovine - [id number] Implanted:Qty: 1 on 10/01/2022 by Leonardo Lacy [employer] at [employer] N/A: Aorta FiREapps 01/27/2024 PFP 6X8 / / [id number] Description:Proximal aorta Graft Vasc 14/[id number] Vascutek Gelweave Trifurcate Arch - [id number] Implanted:Qty: 1 on 10/01/2022 by Leoanrdo Lacy [employer] at [employer] N/A: Aortic Arch MenoGeniX 11/11/2024 [id number]/10X 2 / [id number] / [id number] Graft Vasc [id number] Vascutek Gelweave Stra - [id number] Implanted:Qty: 1 on 10/01/2022 by Leonardo Lacy [employer] at [employer] N/A: Aorta [employer]iX 06/11/2025 [id number] / [id number] / [id number] Occluder Krissy 45mm Atriclip Flex V Exclusion Sys - [id number] Implanted:Qty: 1 on 10/01/2022 by Leonardo Lacy [employer] at [employer] Left: Heart [employer] 05/13/2025 [id number] / / [id number] Explanted Type Area Efficiency Miner Blasting Device Identifier Shelf Expiration Date Model / Serial / Lot Graft Vasc [id number] Hemashield Gold [facility] - [id number] Explanted:Qty: 1 on 10/01/2022 at [employer] Grafts Right: Chest [employer] 05/13/2027 [id number] / [id number] Description:AXILLARY Procedures Procedure Name Priority Date/Time Associated Diagnosis Comments ECHO TTE COMPLETE WO CONTRAST Routine 08/29/2023 1:38 PM CDT Heart murmur BASIC METABOLIC PANEL Today 07/30/2023 10:05 AM CDT DEBORAH (acute kidney injury) (HC) EKG 12 LEAD Routine 07/18/2023 PAF (paroxysmal atrial fibrillation) (HC) from Last 3 Months Results * ECHO TTE COMPLETE WO CONTRAST (08/29/2023 1:38 PM CDT) AORTIC VALVE MEAN PG 9 mmHg EJECTION FRACTION 60 % LVEDD 5.4 cm Anatomical Region Laterality Modality Ultrasound 08/29/2023 1:09 PM CDT Narrative 08/29/2023 5:31 PM CDT ECHOCARDIOGRAM JOSE L UREÑA ?Accession#: ?? [id number] : ?1950 73 years Study Date: ?? 08/29/2023 1:09:40 PM Gender: M ? BP: ? 116/70 mmHg Height: 180.00 cm ? BSA: ?2.17 m? ? ? Weight: 97.00 kg ?Tech: ? MSR ?Referring MD: RAMBO JACK Site: ? [facility] Reading Location: Mobile OP Patient Location: Outpatient. Procedure: 2D, Color Doppler and Spectral Doppler. Indication for study: Heart murmur Cardiac Rhythm: Regular.Study quality: Good. Final Impressions: 1. Normal left ventricular size, normal wall thickness, normal global systolic function, calculated EF of 60 %. 2. The aortic valve is sclerotic and not well visualized, mild stenosis and mild regurgitation. The aortic valve peak velocity is 1.9 m/s, the peak gradient is 15 mmHg, and the mean gradient is 9 mmHg. The aortic valve area is 1.72 cm? ? ? with a dimensionless index of 0.46. The stroke volume index is 34.1 ml/m? ? ?. 3. The mitral valve is normal, mild mitral regurgitation. 4. The aortic sinus is dilated with a maximal diameter of 4.3 cm. 5. The abdominal aorta is dilated measuring approximatley 3.1 cm with a dissection flap visualized. Comparison Compared to prior exam images and report of 10/24/22: - The left ventricular function has increased. -No definite regional wall motion abormalities are visualized. Chamber Sizes and Function Normal left ventricular size, normal wall thickness, normal global systolic function, calculated EF of 60 %. No definite resting regional wall motion abnormality seen. Left atrial size is normal. Right ventricular cavity size is normal, global systolic RV function is normal. The right atrium is normal. The pulmonary artery is not well visualized. The sinus of Valsalva is dilated. The ascending aorta is normal sized. The abdominal aorta is dilated measuring approximatley 3.1 cm with a dissection flap visualized. Valves, RV Pressures and Diastolic Function The aortic valve is sclerotic and not well visualized , mild stenosis and mild regurgitation. The mitral valve is normal in structure, mild mitral regurgitation. Normal diastolic function. The tricuspid valve is normal in structure. Tricuspid regurgitation is trace regurgitation. Unable to assess right ventricular systolic pressure. The pulmonic valve is normal. Trace pulmonary regurgitation. Pulmonary veins show a normal flow pattern. Masses, Effusion, Shunts There is no pericardial effusion. The inferior vena cava is normal sized, respiratory size variation greater than 50%. No left to right shunting was detected by limited color flow Doppler interrogation of the interatrial septum. MEASUREMENTS AND CALCULATIONS 2-D Measurements and LV Function: LVID (d) 5.4 cm Planimetered EF 60 % LVID (s) 3.7 cm LV FS% (2D) ? 31 % IVS (d) ??1.0 cm LVOT diameter ?? 2.2 cm LVPW (d) 1.0 cm HR ?67 bpm Ao Sinus 4.3 cm LA Vol index ?23 ml/m2 Asc Ao ?? 3.4 cm RV Max 4C (d) ?? 4.7 cm Diastology: Mitral ?Tissue Doppler E Peak 0.7 m/s ??e', Septum ? 0.07 m/s A Peak 0.8 m/s ??e', Lateral ?0.10 m/s E/A ?0.9 ?E/e' Average ?? 8.75 DT ? 209 msec Aortic Valve: Vmax ? 1.9 m/s ??ALIZA (V) ?? 1.95 cm? AI P 1/2 558 msec VTI ?0.43 m ?? ALIZA (I) ?? 1.72 cm? ? ? LVOT V max 1.0 m/s ??Max PG ?15 mmHg LVOT VTI ?? 0.20 m ?? Mean PG ?? 9 mmHg SV ? 74 ml ?Dim Index 0.46 SV index ?? 34 ml/m? ? ? CO ?5.0 l/min ?CI ?2.3 l/min/m? ? ? Mitral Valve: MVA ?3.6 cm? ? ? MV P 1/2 61 msec Tricuspid Valve and estimated PA pressures: TAPSE 2.2 cm . This study was interpreted by an [facility] accredited facility. ??Final ?? Procedure Note Colt Yan MD - 08/29/2023 ECHOCARDIOGRAM JOSE L UREÑA : 1950 73 years Study Date: 08/29/2023 1:09:40 PM Gender: M BP: 116/70 mmHg Height: 180.00 cm BSA: 2.17 m? ? ? Weight: 97.00 kg Tech: MSR Referring MD: RAMBO JACK Site: [facility] Reading Location: Mobile OP Patient Location: Outpatient. Procedure: 2D, Color Doppler and Spectral Doppler. Indication for study: Heart murmur Cardiac Rhythm: Regular.Study quality: Good. Final Impressions: 1. Normal left ventricular size, normal wall thickness, normal globalsystolic function, calculated EF of 60 %. 2. The aortic valve is sclerotic and not well visualized, mild stenosisand mild regurgitation. The aortic valve peak velocity is 1.9 m/s, thepeak gradient is 15 mmHg, and the mean gradient is 9 mmHg. The aorticvalve area is 1.72 cm? ? ? with a dimensionless index of 0.46. The strokevolume index is 34.1 ml/m? ? ?. 3. The mitral valve is normal, mild mitral regurgitation. 4. The aortic sinus is dilated with a maximal diameter of 4.3 cm. 5. The abdominal aorta is dilated measuring approximatley 3.1 cm with adissection flap visualized. Comparison Compared to prior exam images and report of 10/24/22: - The left ventricular function has increased. -No definite regional wall motion abormalities are visualized. Chamber Sizes and Function Normal left ventricular size, normal wall thickness, normal globalsystolic function, calculated EF of 60 %. No definite resting regionalwall motion abnormality seen. Left atrial size is normal. Rightventricular cavity size is normal, global systolic RV function is normal.The right atrium is normal. The pulmonary artery is not well visualized.The sinus of Valsalva is dilated. The ascending aorta is normal sized. Theabdominal aorta is dilated measuring approximatley 3.1 cm with adissection flap visualized. Valves, RV Pressures and Diastolic Function The aortic valve is sclerotic and not well visualized , mild stenosis andmild regurgitation. The mitral valve is normal in structure, mild mitralregurgitation. Normal diastolic function. The tricuspid valve is normal instructure. Tricuspid regurgitation is trace regurgitation. Unable toassess right ventricular systolic pressure. The pulmonic valve is normal.Trace pulmonary regurgitation. Pulmonary veins show a normal flowpattern. Masses, Effusion, Shunts There is no pericardial effusion. The inferior vena cava is normal sized,respiratory size variation greater than 50%. No left to right shunting wasdetected by limited color flow Doppler interrogation of the interatrialseptum. MEASUREMENTS AND CALCULATIONS 2-D Measurements and LV Function: LVID (d) 5.4 cm Planimetered EF 60 % LVID (s) 3.7 cm LV FS% (2D) 31 % IVS (d) 1.0 cm LVOT diameter 2.2 cm LVPW (d) 1.0 cm HR 67 bpm Ao Sinus 4.3 cm LA Vol index 23 ml/m2 Asc Ao 3.4 cm RV Max 4C (d) 4.7 cm Diastology: Mitral Tissue Doppler E Peak 0.7 m/s e', Septum 0.07 m/s A Peak 0.8 m/s e', Lateral 0.10 m/s E/A 0.9 E/e' Average 8.75 DT 209 msec Aortic Valve: Vmax 1.9 m/s ALIZA (V) 1.95 cm? ? ? AI P 1/2 558 msec VTI 0.43 m ALIZA (I) 1.72 cm? ? ? LVOT V max 1.0 m/s Max PG 15 mmHg LVOT VTI 0.20 m Mean PG 9 mmHg SV 74 ml Dim Index 0.46 SV index 34 ml/m? ? ? CO 5.0 l/min CI 2.3 l/min/m? ? ? Mitral Valve: MVA 3.6 cm? ? ? MV P 1/2 61 msec Tricuspid Valve and estimated PA pressures: TAPSE 2.2 cm . This study was interpreted by an [facility] accredited facility. Final Rambo Jack MD ECHO ORD * (ABNORMAL) BASIC METABOLIC PANEL (07/30/2023 10:05 AM CDT) SODIUM 140 136 - 145 mmol/L 07/30/2023 10:[address] [facility] POTASSIUM 4.5 3.5 - 5.1 mmol/L 07/30/2023 10:[address] [facility] CHLORIDE 106 98 - 107 mmol/L 07/30/2023 10:[address] [facility] CO2,TOTAL 23 22 - 29 mmol/L 07/30/2023 10:[address] [facility] ANION GAP 11 5 - 18 07/30/2023 10:[address] [facility] GLUCOSE 84 70 - 99 mg/dL 07/30/2023 10:[address] [facility] CALCIUM 9.5 8.8 - 10.2 mg/dL 07/30/2023 10:[address] [facility] BUN 25(H) 8 - 23 mg/dL 07/30/2023 10:[address] [facility] CREATININE 1.58(H) 0.70 - 1.20 mg/dL 07/30/2023 10:[address] [facility] BUN/CREAT RATIO 16 10 - 20 10:[address] [facility] eGFR 46(L) >90 mL/min/1.7 3m2 07/30/2023 10:[address] [facility] Comment:As of 2021, eG FR is calculated by the CKD-EPI creatinine equation without race adjustment. ??eGFR can be influenced by muscle mass, exercise, and diet. ??The reported eGFR is an estimation only and is only applicable if the renal function is stable. Blood BLOOD SPECIMEN / Unknown Venipuncture / Unknown 07/30/2023 10:05 AM CDT 07/30/2023 10:05 AM CDT Rambo Jack MD CHEMISTRY [facility] [address] [place] [address] * EKG 12 LEAD (07/18/2023) Jose L Nayak MD EKG ORD from Last 3 Months Advance Directives * [...] Preferences, Provider to review later Care Teams Air Brake Operator Relationship Specialty Start Date End Date Los Booker MD [address] [place] [address] PCP - General Family Practice 12/01/20
--- OUTSIDE RECORDS SUMMARY | 2023-10-17 09:27 | XMS_ITS | Referral Summary ---
Author Organization [facility] Address [address] [place] [address] Care Team Providers Care Software Manager Name Role Phone Unavailable Primary Care Provider Unavailabl e Source Comments Patient records contain information from all sites at [facility]. For routine questions regarding patient records, call [phone] during business hours, M-F 8:00 AM - 5:00 PM Central Time. Record requests for emergency care only can be directed to [phone] at any time.[facility] Encounters Date Type Department Care Team Description 09/27/2023 1:00 PM CDT External Outreach Division of Nephrology and Hypertension in [place], [place] [address] [place] [address] Nubia Norman M.D., Ph.D. Chronic Kidney Disease (CKD), Stage 3a Glomerular Filtration Rate (GFR) 45 To 59 (HCC) (Primary Dx); Hypertension Essential Primary; Nephrolithiasis from Last 3 Months Active Problems Problem Noted Date Diagnosed Date Chronic Kidney Disease (CKD) , Stage 3a Glomerular Filtration Rate (GFR) 45 To 59 10/01/2023 Hypertension Essential Primary 10/01/2023 Nephrolithiasis 10/01/2023 Social History Tobacco Use Types Packs/Day Years Used Date Smoking Tobacco: Never Assessed Dental Answer Date Recorded Dental: Regular Dentist Unknown 08/24/19 24 Sex and Gender Information Value Date Recorded Sex Assigned at Not on file Gender Identity Not on file Sexual Orientation Not on file Plan of Treatment Not on file
--- OUTSIDE RECORDS SUMMARY | 2023-10-17 09:27 | XMS_ITS ---
Author Organization [facility] Address [address] [place] [address] Care Team Providers Care Hardwood Floor Layer Name Role Phone Unavailable Unavailable Unavailable Surgery Details Not on file Complications Check Surgery Details section. Procedure Estimated Blood Loss Check Surgery Details section. Procedure Findings Check Surgery Details section. Procedure Specimens Taken Check Surgery Details section.
--- OUTSIDE RECORDS SUMMARY | 2023-10-17 09:27 | XMS_ITS | Encounter Summary ---
Author Organization [facility] Address [address] [place] [address] Care Team Providers Care Continuity Reader Name Role Phone Unavailable Primary Care Provider Unavailabl e Reason for Visit * Appointment Request (Routine) - Closed Specialty Diagnoses / Procedures Referred By Norm t Referred To Contact Nephrology and Hypertension Los Booker M.D. [address] [place] [address] Referral ID Status Reason Start Date Expiration Date Visits Re quested Visits Authorized [id number] Closed 08/24/2023 08/23/2024 1 1 Encounter Details Date Type Department Care Team (Latest Contact Info) Description 09/27/2023 1:00 PM CDT External Outreach Division of Nephrology and Hypertension in [place], [place] [address] [place] [address] Nubia Norman M.D., Ph.D. [address] [place] [address] Chronic Kidney Disease (CKD), Stage 3a Glomerular Filtration Rate (GFR) 45 To 59 (HCC) (Primary Dx); Hypertension Essential Primary; Nephrolithiasis Social History Tobacco Use Types Packs/Day Years Used Date Smoking Tobacco: Never Assessed Dental Answer Date Recorded Dental: Regular Dentist Unknown 08/24/19 24 Sex and Gender Information Value Date Recorded Sex Assigned at Not on file Gender Identity Not on file Sexual Orientation Not on file documented as of this encounter Progress Notes * Nubia Normna M.D., Ph.D. - 09/27/2023 1:00 PM CDT Referring Provider: Los Booker M.D. SUBJECTIVE CHIEF COMPLAINT/REASON FOR VISIT CKD stage 3A in the setting of nephrolithiasis and AAA status post repair, hypertension. HISTORY OF PRESENT ILLNESS Mr. Ureña is a 73-year-old man with a long-standing history of hypertension, well controlled on currently therapy with amlodipine 10 mg daily and carvedilol 3.125 mg twice a day. He has a history of BPH and follows with a local urologist. He is on alfuzosin ER 10 mg daily. He has nocturia of 3 times per night. He denies any urinary retention symptoms. He has been taking a medication for urinaryincontinence that is helping decrease his urinary urgency at nighttime. The patient has a history of kidney stones. He last passed a stone 3 years ago. He has not done a 24-hour urine supersaturation. He has not required surgical intervention for stone removal. The patient had several hospitalizations in 2022. One in September of 2022 associated with type I ascending aortic dissection requiring repair. He had a complex aortic graft procedure requiring physicaltherapy in a rehabilitation facility afterwards. He was then hospitalized again in November 2022 associated with complicated urinary tract infection requiring home IV antibiotics. He has a prior history of hematuria associated with the use of Eliquis for DVT. Anticoagulation was stopped due to subdural hematoma. He has presented several acute kidney injuries through his hospitalizations. His baseline creatinine last year was 1.3, and it is currently increased to 1.6. He presented to a CT scan this year and had laboratory workup done prior to the scan that showed an elevated creatinine at 1.7 mg/dL. After rechecking his labs a few weeks later, it had trended down to 1.56. Due to concerns of elevated creatinine from his prior baseline of 1.3, the patient was referred to Nephrology for further evaluation. There is no recent urinalysis on file. His prior urinalysis is from February 2023 when patient presented with signs of UTI. Currently, he does not have any symptoms of urinary tract infection. He has no passed any recent kidney stones. He denies any renal colic. REVIEW OF SYSTEMS All other systems were reviewed and are negative, rest as per HPI. OBJECTIVE PHYSICAL EXAMINATION General: No acute distress, breathing comfortably. Heart: Regular rate and rhythm. No murmurs, rubs or gallops. Respiratory: Regular inspiratory effort. No wheezes, no rhonchi. Abdomen: Soft, not tender, not distended. Present bowel sounds. Extremities: Full range of motion. Normal gait. No edema in lower extremities Neuro: No focal deficits. Alert and oriented X 4. Skin: Warm. No rashes. Psych: Answers questions appropriately. No signs of anxiety or depression noted. DIAGNOSTICS Labs: I have reviewed available labs in detail with patient. ASSESSMENT / PLAN #1 Chronic kidney disease stage 3A #2 Kidney stones #3 History of AAA status post repair #4 BPH The patient is referred to Nephrology for evaluation of his CKD. His creatinine is currently at baseline at 1.6. Electrolytes are acceptable. He presents now anemia. He verbalizes that he is not quite sure why he needed to be seen by Nephrology as his kidney function has remained stable. He verbalizes not to be concerned about his kidney stones and declines a 24-hour supersaturation. Ihave explained to patient the importance to decrease the risk of stone production and stone burden.I have reviewed his CT scan that shows a 7- mm kidney stone in the right ureter that is nonobstructing on the imaging study. However, the risk of getting obstructive over time if it continues to grow is high. The patient should follow a low-salt diet, keep good hydration of about 2- 3 L per day to decrease the risk of stone production. I have recommended him to avoid NSAID use and to use only acetaminophen for pain control. His blood pressure is well controlled on current therapy. No changes were made today to his hypertension regimen. I will order a renal ultrasound to evaluate kidney size and rule out obstruction from the 7-mm kidney stone that was previously seen on his CT scan. There is also a prior CT scan done in September of 2022 which showed some renal lesions that were not well determined at that time due to being too small. I will order a urinalysis as there is no recent urine test on file to rule out hematuria and to quantify proteinuria to a spot urine with an albumin to creatinine ratio. If test results are within normal range, the patient would prefer to follow up with his primary care provider. I have discussed with the patient that if abnormal urinalysis or ultrasound we may need to order further testing, and he will be required to follow up in this clinic. I have also offered to follow up kidney stone management. However, the patient declines. All questions were answered. Selin Franco M.D., Ph.D. CT CT Job ID: [id number]/srt documented in this encounter Plan of Treatment Not on file documented as of this encounter Visit Diagnoses Diagnosis Chronic Kidney Disease (CKD), Stage 3a Glomerular Filtration Rate (GFR) 45 To 59 (HCC)- Primary Hypertension Essential Primary Nephrolithiasis documented in this encounter
--- NOTE | 2023-10-17 09:30 | CRLHL7_ITS ---
For Patients: As a result of the Century Cures Act, medical imaging exams and procedure reports are released immediately into your electronic medical record. You may view this report before your referring provider. If you have questions, please contact your health care provider. CLINICAL HISTORY: Chronic kidney disease TECHNIQUE: Zazueta scale and color Doppler images were acquired of the kidneys and urinary bladder. FINDINGS: Right kidney measures 12.1 left kidney measures 11.5 centimeter renal cortices are maintained there is a 6 centimeter right superior renal cyst. There is no hydronephrosis. Echogenic focus in left kidney could represent nonobstructing stone. Left renal cysts are present. Largest cyst measures 2.2 centimeters. No hydronephrosis. Enlarged heterogeneous prostate gland measuring 6.4 x 4.7 x 5.9 centimeters urinary bladder unremarkable with wall thickening. IMPRESSION: 1. Renal cysts. Possible nonobstructing left renal calculi. No hydronephrosis bilaterally. 2. Enlarged prostate gland mild wall thickening of the urinary bladder. Dictated by Taylor Medina MD @ 10/17/2023 11:38:26 AM (Electronically Signed)
== END 2023-10-17 09:24 | disposition home or self-care (01) ==
PROVIDERS: PCP Family Medicine; Visit Provider Internal Medicine Nephrology
DX: N18.30 Chronic kidney disease, stage 3 unspecified (principal); N28.1 Cyst of kidney, acquired; N40.0 Benign prostatic hyperplasia without lower urinary tract symptoms; N28.9 Disorder of kidney and ureter, unspecified
CPT/HCPCS: 76770

== ENCOUNTER 2023-10-18 10:15 | Outpatient (CLI) | payer MEDICARE, OTHER, SELFPAY ==
--- OUTSIDE RECORDS SUMMARY | 2023-10-23 08:19 | XMS_ITS | Referral Summary ---
Author Organization [facility] Address [address] [place] [address] Care Team Providers Care Mini Shifter Name Role Phone Unavailable Primary Care Provider Unavailabl e Source Comments Patient records contain information from all sites at [facility]. For routine questions regarding patient records, call [phone] during business hours, M-F 8:00 AM - 5:00 PM Central Time. Record requests for emergency care only can be directed to [phone] at any time.[facility] Encounters Date Type Department Care Team Description 09/27/2023 1:00 PM CDT External Outreach Division of Nephrology and Hypertension in [place], [place] [address] [place] [address] Nubia Norman M.D., Ph.D. Chronic Kidney Disease [...]
--- OUTSIDE RECORDS SUMMARY | 2023-10-23 08:19 | XMS_ITS | Encounter Summary ---
Author Organization [facility] Address [address] [place] [address] Care Team Providers Care Business Account Specialist Name Role Phone Unavailable Primary Care Provider Unavailabl e Reason for Visit * Appointment Request (Routine) - Closed Specialty Diagnoses / Procedures Referred By Norm t Referred To Contact Nephrology and Hypertension Los Booker M.D. [address] [place] [address] Referral ID Status Reason Start Date Expiration Date Visits Re quested Visits Authorized [id number] Closed 08/24/2023 08/23/2024 1 1 Encounter Details Date Type Department Care Team (Latest Contact Info) Description 09/27/2023 1:00 PM CDT External Outreach Division of Nephrology and Hypertension in [place], [place] [address] [place] [address] Nubia Norman M.D., Ph.D. [address] [place] [address] Chronic Kidney Disease (CKD), Stage 3a Glomerular [...] of this encounter Progress Notes * Nubia Norman M.D., Ph.D. - 09/27/2023 1:00 PM CDT [...] Franco M.D., Ph.D. CT CT Job ID: [id number] documented in this encounter Plan of Treatment Not on file documented as of this encounter Visit Diagnoses Diagnosis Chronic Kidney Disease (CKD), Stage 3a Glomerular Filtration Rate (GFR) 45 To 59 (HCC)- Primary Hypertension Essential Primary Nephrolithiasis documented in this encounter
--- OUTSIDE RECORDS SUMMARY | 2023-10-23 08:19 | XMS_ITS ---
Author Organization [facility] Address [address] [place] [address] Care Team Providers Care Fast Food Server Name Role Phone Unavailable Unavailable Unavailable Surgery Details Not on file Complications Check Surgery Details section. Procedure Estimated Blood Loss Check Surgery Details section. Procedure Findings Check Surgery Details section. Procedure Specimens Taken Check Surgery Details section.
--- OUTSIDE RECORDS SUMMARY | 2023-10-23 08:19 | XMS_ITS | Clinical Summary ---
Author Organization [facility] Address [address] [place] [address] Care Team Providers Care Golf Course Architect Name Role Phone Unavailable Primary Care Provider Unavailabl e Source Comments Patient records contain information from all sites at [facility]. For routine questions regarding patient records, call [phone] during business hours, M-F 8:00 AM - 5:00 PM Central Time. Record requests for emergency care only can be directed to [phone] at any time.[facility] Active Problems Problem Noted Date Diagnosed Date Chronic Kidney Disease (CKD) , Stage 3a Glomerular Filtration Rate (GFR) 45 To 59 10/01/2023 Hypertension Essential Primary 10/01/2023 Nephrolithiasis 10/01/2023 Encounters Date Type Department Care Team Description 09/27/2023 1:00 PM CDT External Outreach Division of Nephrology and Hypertension in [place], [place] [address] [place] [address] Nubia Norman M.D., Ph.D. Chronic Kidney Disease [...]
--- OUTSIDE RECORDS SUMMARY | 2023-10-23 08:19 | XMS_ITS | Clinical Summary ---
Author Organization [facility] Address [place], [place] [address] Care Team Providers Care Forensic Sergeant Name Role Phone Los Booker MD Primary Care Provider [phone] Allergies Active Allergy Reactions Criticality Noted Date [...] hematuria 10/05/2022 S/P ascending aortic replacement 10/02/2022 Overview (10/19/2022): VASCUTEK VASCULAR PRSTHESIS, TRIFURCATE ARCH GRAFT, REF:[id number], LOT: [id number], SN: [id number], EXP: 11/11/24, AORTIC ARCH/GREAT VESSELS, DR. LACY, 10/01/22 GELWEAVE VASCULAR PROSTHESIS, [id number], REF: [id number], SN: [id number], LOT:[id number], EXP: 06/11/25, AORTA, DR. 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 UTI due to Klebsiella species Resolved Problems Problem Noted Date Diagnosed Date Resolved Date UTI (urinary tract infection) 12/11/2022 12/11/2022 Encounters Date Type Department Care Team Description 09/17/2023 Orders Only [facility] [place] [address] [place] [address] Bon Ingram MD <No scans attached> 08/29/2023 1:00 PM CDT Ancillary Procedure [facility] [address] [place] [address] 08/29/2023 Travel 08/20/2023 Telephone [facility] [place] [facility] [address] [facility] [address] [place] [address] Rambo Jack MD Medication Management 07/30/2023 10:30 AM CDT Office Visit [facility] [address] [facility] [address] [place] [phone] Rambo Jack MD Follow Up (F/U to [facility] 07/15, saw EP 07/17. labs prior. Zio worn 04/10-04/23. Pt states feeling good, no recent or current cardiac symptoms. Questions about appt with Juan Jose. ) 07/30/2023 9:58 AM CDT - 07/30/2023 11:59 PM CDT Hospital Encounter [facility] [address] [place] [address] DEBORAH (acute kidney injury) (HC) 07/30/2023 Travel from Last 3 Months Immunizations Name [...] Sex Assigned at Male 01/08/2023 10:44 AM LUMBER MATERIAL HANDLER Gender Identity Male 01/08/2023 10:44 AM LUMBER MATERIAL HANDLER Sexual Orientation Straight 01/08/2023 10 :44 AM LUMBER MATERIAL HANDLER Obstetrics History Last Filed Vital Signs Vital Sign Reading Time Taken Comments Blood Pressure 116/70 07/30/2023 10:15 AM CDT Pulse 65 07/30/2023 10:15 AM CDT Temperature 36.5 ??C (97.7 ??F) 12/26/2022 1:44 PM CS T Respiratory Rate 16 12/25/2022 2:38 PM LUMBER MATERIAL HANDLER Oxygen Saturation 100% 07/30/2023 10:15 AM CDT [...] history exists Medical Devices Implanted Type Area Director Of Manufacturing Device Identifier Shelf Expiration Date Model / Serial / Lot Tissue Pericardium 6x8cm Photofix Bovine - [id number] Implanted:Qty: 1 on 10/01/2022 by Leonardo Lacy MBBS at [facility] N/A: Aorta Sunnova 01/27/2024 PFP 6X8 / / [id number] Description:Proximal aorta Graft Vasc 14/[id number] Vascutek Gelweave Trifurcate Arch - [id number] Implanted:Qty: 1 on 10/01/2022 by Leonardo Lacy MBBS at [facility] N/A: Aortic Arch Woldme 11/11/2024 [id number]/[id number] 2 / [id number] / [id number] Graft Vasc [id number] Vascutek Gelweave Stra - [id number] Implanted:Qty: 1 on 10/01/2022 by Leonardo Lacy MBBS at [facility] N/A: Aorta Woldme 06/11/2025 [id number] / [id number] / [id number] Occluder Krissy 45mm Atriclip Flex V Exclusion Sys - [id number] Implanted:Qty: 1 on 10/01/2022 by Leonardo Lacy MBBS at [facility] Left: Heart [employer] 05/13/2025 [id number] / / [id number] Explanted Type Area Director Of Manufacturing Device Identifier Shelf Expiration Date Model / Serial / Lot Graft Vasc [id number] Hemashield Gold Stra - [id number] Explanted:Qty: 1 on 10/01/2022 at [facility] Grafts Right: Chest [employer] 05/13/2027 [id number] / [id number] Description:AXILLARY Procedures Procedure Name Priority Date/Time Associated Diagnosis Comments ECHO TTE COMPLETE WO CONTRAST Routine 08/29/2023 1:38 PM CDT Heart murmur BASIC METABOLIC PANEL Today 07/30/2023 10:05 AM CDT DEBORAH (acute kidney injury) (HC) from Last 3 Months Results * ECHO TTE COMPLETE WO CONTRAST (08/29/2023 1:38 PM CDT) AORTIC VALVE MEAN PG 9 mmHg EJECTION FRACTION 60 % LVEDD 5.4 cm Anatomical Region Laterality Modality Ultrasound 08/29/2023 1:09 PM CDT Narrative 08/29/2023 5:31 PM CDT ECHOCARDIOGRAM JOSE L MCLEAN ?Accession#: ?? [id number] : ?1950 73 years Study Date: ?? 08/29/2023 1:09:40 PM Gender: M ? BP: ? 116/70 mmHg Height: 180.00 cm ? BSA: ?2.17 m? ? ? Weight: 97.00 kg ?Tech: ? MSR ?Referring MD: RAMBO JACK Site: ? [facility] Reading Location: Mobile OP Patient Location: Outpatient. [...] . This study was interpreted by an [facility] accredited facility. ??Final ?? Procedure Note Colt Yan MD - 08/29/2023 ECHOCARDIOGRAM JOSE L MCLEAN : 1950 73 years Study Date: 08/29/2023 1:09:40 PM Gender: M BP: 116/70 mmHg Height: 180.00 cm BSA: 2.17 m? ? ? Weight: 97.00 kg Tech: JANNET Referring MD: RAMBO JACK Site: [facility] Reading Location: Mobile OP Patient Location: Outpatient. [...] . This study was interpreted by an [facility] accredited facility. Final Rambo Jack MD ECHO ORD * (ABNORMAL) BASIC METABOLIC PANEL (07/30/2023 10:05 AM CDT) SODIUM 140 136 - 145 mmol/L 07/30/2023 10:31 AM CDT [facility] POTASSIUM 4.5 3.5 - 5.1 mmol/L 07/30/2023 10:31 AM CDT [facility] CHLORIDE 106 98 - 107 mmol/L 07/30/2023 10:31 AM CDT [facility] CO2,TOTAL 23 22 - 29 mmol/L 07/30/2023 10:31 AM CDT [facility] ANION GAP 11 5 - 18 07/30/2023 10:31 AM CDT [facility] GLUCOSE 84 70 - 99 mg/dL 07/30/2023 10:31 AM CDT [facility] CALCIUM 9.5 8.8 - 10.2 mg/dL 07/30/2023 10:31 AM CDT [facility] BUN 25(H) 8 - 23 mg/dL 07/30/2023 10:31 AM CDT [facility] CREATININE 1.58(H) 0.70 - 1.20 mg/dL 07/30/2023 10:31 AM CDT [facility] BUN/CREAT RATIO 16 10 - 20 10:31 AM CDT [facility] eGFR 46(L) >90 mL/min/1.7 3m2 07/30/2023 10:31 AM CDT [facility] Comment:As of 2021, eG FR is calculated by the CKD-EPI creatinine equation without race adjustment. ??eGFR can be influenced by muscle mass, exercise, and diet. ??The reported eGFR is an estimation only and is only applicable if the renal function is stable. Blood BLOOD SPECIMEN / Unknown Venipuncture / Unknown 07/30/2023 10:05 AM CDT 07/30/2023 10:05 AM CDT Rambo Jack MD CHEMISTRY [facility] [address] [place] [address] from Last 3 Months Advance Directives * [...] Preferences, Provider to review later Care Teams Forensic Sergeant Relationship Specialty Start Date End Date Los Booker MD [address] [place] [address] PCP - General Family Practice 12/01/20
== END 2023-10-18 10:16 | disposition home or self-care (01) ==
LOC: NFLDREF 10-23 08:15
PROVIDERS: PCP Family Medicine; Referring Provider Family Medicine; Visit Provider Internal Medicine Nephrology
DX: N18.31 Chronic kidney disease, stage 3a (principal); R82.90 Unspecified abnormal findings in urine
CPT/HCPCS: 82043; 82570; 87086

== ENCOUNTER 2024-01-31 08:19 | Outpatient (CLI) | payer MEDICARE, OTHER, SELFPAY | END 2024-01-31 08:20 | disposition home or self-care (01) | LOC: NFLDREF 02-01 08:20 | PROVIDERS: PCP Family Medicine; Referring Provider Family Medicine; Visit Provider Family Medicine | DX: E78.5 Hyperlipidemia, unspecified (principal); N40.0 Benign prostatic hyperplasia without lower urinary tract symptoms; I10 Essential (primary) hypertension; Z12.5 Encounter for screening for malignant neoplasm of prostate | CPT/HCPCS: 80053; 80061; G0103 ==

== ENCOUNTER 2024-02-25 11:33 | Outpatient (CLI) | payer MEDICARE, OTHER, SELFPAY ==
--- NOTE | 2024-02-25 13:00 | P.ANES_ITS ---
Anesthesia Charges Start Date/Time Anesthesia Start Date: 02/25/24 Anesthesia Start Time: 12:11 Stop Date/Time Anesthesia Stop Date: 02/25/24 Anesthesia Stop Time: 12:57 Summary Extremes of Age - Over 70 or under 1: AUTO TESTER Coding CPT Codes CPT Codes: ANES LWR INTST NDSC NOS - 56492 ([id number]) P3 - PATIENT W/SEVERE SYS DISEASE, QK - REPORTER 2-4 CNCRNT ANES PROC, QX - AUTO TESTER SVC W/ MD MED DIRECTION Additional Codes: Summary - Extremes of Age - Over 70 or under 1: AUTO TESTER ([id number])
--- NOTE | 2024-02-25 13:00 | W.ANESCHARGE ---
Anesthesia Charges Start Date/Time Anesthesia Start Date: 02/25/24 Anesthesia Start Time: 12:11 Stop Date/Time Anesthesia Stop Date: 02/25/24 Anesthesia Stop Time: 12:57 Summary Extremes of Age - Over 70 or under 1: METAL WIRE COATING OPERATOR Coding CPT Codes CPT Codes: ANES LWR INTST NDSC NOS - 54792 ([id number]) P3 - PATIENT W/SEVERE SYS DISEASE, QK - STOCK CHECKERER 2-4 CNCRNT ANES PROC, QX - METAL WIRE COATING OPERATOR SVC W/ MD MED DIRECTION Additional Codes: Summary - Extremes of Age - Over 70 or under 1: METAL WIRE COATING OPERATOR ([id number])
--- NOTE | 2024-02-25 13:08 | P.ANES_ITS ---
Anesthesia Charges Start Date/Time Anesthesia Start Date: 02/25/24 Anesthesia Start Time: 12:11 Stop Date/Time Anesthesia Stop Date: 02/25/24 Anesthesia Stop Time: 12:57 Summary Extremes of Age - Over 70 or under 1: MDA Coding CPT Codes CPT Codes: ANES LWR INTST NDSC NOS - 43771 ([id number]) QK - STEAM HAND 2-4 CNCRNT ANES PROC, QX - UNARMED SECURITY GUARD SVC W/ MD MED DIRECTION, P3 - PATIENT W/SEVERE SYS DISEASE Additional Codes: Summary - Extremes of Age - Over 70 or under 1: MDA ([id number])
== END 2024-02-25 11:34 | disposition home or self-care (01) ==
LOC: OP CLINIC 11:36
PROVIDERS: PCP Family Medicine; Visit Provider Surgery
DX: Z12.11 Encounter for screening for malignant neoplasm of colon (principal); D12.3 Benign neoplasm of transverse colon; K55.20 Angiodysplasia of colon without hemorrhage; K57.30 Diverticulosis of large intestine without perforation or abscess without bleeding; Z86.0100 Personal history of colon polyps, unspecified
CPT/HCPCS: 00811; 45385; 88305; 99100; J2704